=== PATIENT | female | born 1940 | race Caucasian/White ===

== ENCOUNTER → 2016-09-30 12:26 | Outpatient (CLI) | payer MEDICARE, OTHER ==
[2011-03-11 08:52] VITALS: BMI 22.8
== END | disposition home or self-care (01) ==
LOC: D.RAD 12:26
DX: R06.00 Dyspnea, unspecified (principal)

== ENCOUNTER → 2017-02-17 08:23 | Outpatient (CLI) | payer MEDICARE, OTHER ==
[2011-03-11 08:52] VITALS: BMI 22.8
[~2017-02-17 08:23] MED LIST: ADVAIR 250/501 DISK INH; BIOTIN5 MG PO; CENTRUM SILVER1 EAC3 PO; CO Q-1030 MG PO; CRANBERRY 400 M1 TA1 PO; DIOVAN HCT 80-11 TAB PO; GARLIQUE PO; LEVOXYL25 MCG PO; LOW DOSE ASPIRI81 M1 PO; MAG-OXIDE400 MG PO; OYSCO 500+D TAB1 TAB PO; PREMARIN0.625 MG PO; PROBIOTIC1 EAC1 PO; PROTONIX40 MG PO; SPIRIVA18 MCG INH; VITAMIN B-122500 MCG PO; VITAMIN C WIT1000 MG PO
[2017-02-17 09:29] LABS: ALBUMIN 3.6 g/dL (3.4-5.0); BILIRUBIN - DIRECT 0.1 mg/dL (0.00-0.30); BILIRUBIN - INDIRECT 0.21 mg/dL (0.00-1.00); BILIRUBIN - TOTAL 0.31 mg/dL (0.2-1.3); PROTEIN - SERUM 7.3 g/dL (6.4-8.2)
[2017-02-18 12:15] LABS: CEA 3.1 ng/mL (0.0-4.7)
[2017-05-25 07:04] VITALS: BMI 22.1
== END | disposition home or self-care (01) ==
LOC: D.US 08:23 → D.LAB 09:45 → D.US 10:00 → D.NM 02-18 08:30
PROVIDERS: Internal Medicine Gastroenterology
DX: R11.2 Nausea with vomiting, unspecified (principal); K31.7 Polyp of stomach and duodenum

== ENCOUNTER → 2017-03-23 08:34 | Outpatient (CLI) | payer MEDICARE, OTHER ==
[2011-03-11 08:52] VITALS: BMI 22.8
== END | disposition home or self-care (01) ==
LOC: D.RT 08:34
DX: J44.9 Chronic obstructive pulmonary disease, unspecified (principal)

== ENCOUNTER 2017-05-25 05:54 | Day surgery (SDC) | payer MEDICARE, OTHER ==
[2017-05-24 10:58] LABS: ANION GAP 12.9 mmol/L (8-16); CALCIUM 9.1 mg/dL (8.5-10.1); CARBON DIOXIDE 27.6 mmol/L (21.0-32.0); CREATININE - SERUM 1.1 mg/dL (0.6-1.3); HEMATOCRIT 41.9 % (36.0-48.0); HEMOGLOBIN 13.5 g/dL (12-16); MCH 28.5 pg (26.0-34.0); MCHC 32.2 g/dL (31.0-37.0); MCV 88.4 fL (80.0-100.0); MEAN PLATELET VOLUME 10.5 fL (7.4-10.4); POTASSIUM - SERUM 3.5 mmol/L (3.5-5.1); RBC 4.74 10x6/uL (4.00-5.40); RDW 13.7 % (11.5-14.5); WBC 7.2 10x3/uL (4.8-10.8)
[~2017-05-25] VITALS: Ht 166.4 cm; Wt 61.2 kg
--- NOTE | ~2017-05-25 | OP ---
PATIENT NAME: JEREMIAH ZAMORANO MEDICAL RECORD: [id number] :40 LOCATION:D.OPS ADMISSION DATE: SURGEON: GIUSEPPE GOLDBERG MD DATE OF OPERATION: 05/25/2017 PREOPERATIVE DIAGNOSIS: Duodenal adenoma. POSTOPERATIVE DIAGNOSES: A 4 cm carpeting duodenal adenoma. PROCEDURES: Esophagogastroduodenoscopy with polypectomy utilizing cold endoscopic biopsies and then ablation of the polyp with the argon plasma socket puller utilizing the esophageal setting in the forced mode. SURGEON: Giuseppe Goldberg MD OCCUPATIONAL THERAPY SUPERVISOR: None. BLOOD LOSS: 25 cc. ANESTHESIA: General. COMPLICATIONS: None. The risks, possible complications, and alternatives to the procedure were explained to the patient. She elects to proceed. OPERATIVE COURSE: The patient was conveyed to the operating room electively on 05/25/2017. General anesthesia was induced by the anesthesia staff. A bite block was inserted. A gastroscope was inserted into the mouth. It was advanced easily into the hypopharynx. The esophagus was easily intubated as were the stomach and duodenum. Upon withdrawal, retroflexed and angulus views were obtained. I then advanced again to the area between the second and third portions of the duodenum. Several cold endoscopic biopsies were performed. I then ablated all the polypoid tissue that I could see with the argon plasma socket puller utilizing the esophageal setting in the forced mode. The endoscope was then withdrawn under direct vision. Due to the size of the polyp and the complexity of its distribution and its histology, I want to plan that we could perform another EGD with argon plasma socket puller in 1 year as I believe it is a likelihood that there will be significant regrowth of this polyp by that time. TRANSINT:[id number] Voice Confirmation ID: [id number] DOCUMENT ID: [id number] GIUSEPPE GOLDBERG MD at 1454 CC: [id number] DICTATION DATE: 06/08/17 1048 GRAPHIC ART DESIGNER: 06/08/17 1325 [facility] 05/25/[address] [address]
[2017-05-25 07:04] VITALS: BP 136/72; Ht 166.4 cm; Wt 61.2 kg
== END 2017-05-25 11:25 | disposition home or self-care (01) ==
LOC: D.OPS 05:54 → D.PAN 08:00 → D.OPS 11:25
PROVIDERS: Anesthesiology
DX: K31.7 Polyp of stomach and duodenum (principal); I25.10 Atherosclerotic heart disease of native coronary artery without angina pectoris; I10 Essential (primary) hypertension; E03.9 Hypothyroidism, unspecified; J44.9 Chronic obstructive pulmonary disease, unspecified; K21.9 Gastro-esophageal reflux disease without esophagitis; Z95.5 Presence of coronary angioplasty implant and graft; Z01.812 Encounter for preprocedural laboratory examination

== ENCOUNTER → 2017-10-27 17:03 | Outpatient (CLI) | payer MEDICARE, OTHER ==
[2017-05-25 07:04] VITALS: BMI 22.1
== END | disposition home or self-care (01) ==
LOC: D.MAMMO 13:00
DX: Z12.31 Encounter for screening mammogram for malignant neoplasm of breast (principal)

== ENCOUNTER 2018-02-08 11:55 | Inpatient (IN) | payer MEDICARE, OTHER ==
[~2018-02-08] VITALS: Ht 167.6 cm; Wt 60.5 kg
--- NOTE | ~2018-02-08 | HP ---
PATIENT: JEREMIAH ZAMORANO MEDICAL RECORD: [id number] ACCOUNT: [id number] LOCATION:D.MS Adams2207 : 40 ADMISSION DATE: 02/08/18 PCP: MAYANK ALEGRE MD HISTORY AND PHYSICAL EXAMINATION REASON FOR ADMISSION: Shortness of breath and weakness. HOSPITAL COURSE: The patient is a 77-year-old female with severe O2 dependent COPD. She said about a week ago she developed a little low-grade fever, had increasing cough and shortness of breath. She did visit her sister in [place] where her home and very cool and she felt she got chilled air. With progressive worse over the weekend, went to the outpatient clinic on Tuesday and then took a chest x-ray did not show any problems and placed her on doxycycline 100 mg b.i.d. She was not given steroids. She became weaker over the weekend, saw an EARLY CHILDHOOD AIDE CLASSROOM in my office 3 days prior to admission. An O2 sat was 80%, she was placed on supplemental oxygen and improved. Chest x-ray showed COPD changes and antibiotics were continued. Today, she presented back just not feeling any better, very weak, hardly able to fix her food or take her medicines. In the office, her oxygen saturation was 86% on room air. She was tachypneic with audible wheezes. Chest x-ray again did not show infiltrate. She has now been admitted for exacerbation of COPD, possible underlying bronchitis. She was also hypoxic. PAST HISTORY: COPD followed by Dr. Gardner and was treated with doxycycline and prednisone 01/17/2018. History of FEV1 of 0.9 with 20% improvement with bronchodilators, sleep related hypoxemia, GERD, history of a duodenal adenomas removed by Dr. Desai in May of this year. History of coronary artery disease post stents, with angioplasty. History of cataracts. SURGICAL HISTORY: PTCA for CAD, duodenal adenoma removed by endoscopy May of 2017. History of bilateral breast fibroid tumors removed. History of hysterectomy. ALLERGIES: SULFA. FAMILY HISTORY: Cardiovascular disease in both parents and one sibling. SOCIAL HISTORY: She lives alone, on home O2. She has been for about 5 years. Not smoking currently, but had a significant history of smoking up until about 10 years ago. CURRENT MEDICATIONS: Spiriva 18 mcg 1 puff daily, valsartan HCT 80/12.5 one daily, aspirin 81 mg a day, calcium carbonate with vitamin D 500 mg a day, Advair Diskus 250/50 one puff b.i.d., probiotic 1 daily, magnesium oxide 400 mg p.o. daily, Protonix 40 mg p.o. daily, Premarin 0.625 mg a day, levothyroxine 0.025 mg p.o. daily every morning, ascorbic acid, vitamin C with marcial 1000 mg p.o. daily, Biotin 5 mg p.o. daily, vitamin B12 5000 mcg p.o. daily, Centrum Silver 1 daily, calcium cranberry fruit 400 mg p.o. b.i.d., and Coenzyme Q10 (ubidecarenone) 200 mg p.o. daily, garlic 1 daily. REVIEW OF SYSTEMS: GENERAL: Marked fatigue. Subjective fever for the last week. Poor appetite. HEENT: No recent visual change, sinus congestion or sore throat. RESPIRATORY: She has increased respiratory rate with audible wheezes noted. She is not retracting. She denies sputum production. HISTORY AND PHYSICAL [id number] JEREMIAH ZAMORANO CARDIAC: No chest pain, claudication, but does have GREENE. GASTROINTESTINAL: No nausea, vomiting, change in stools, blood per rectum. GENITOURINARY: No incontinence. GYNECOLOGY: No vaginal bleeding. PSYCHIATRIC: Denies depressed mood. INTEGUMENT: No rash or itching. PHYSICAL EXAMINATION: VITAL SIGNS: Temperature is 99, heart rate was 100 and regular, respirations were 22, blood pressure 110/90. GENERAL: Thin female, appears moderately ill. HEENT: Pupils are reactive. EOMI with lens implants noted. Sclerae nonicteric. Oropharynx is unremarkable except for dry mucous membranes. NECK: Supple. CHEST: She has shallow breathing with expiratory wheezes bilaterally. No rales. Increased AP diameter is noted. Heart is tachycardic without murmur. ABDOMEN: Soft, nontender. No organomegaly. Bowel sounds are active. EXTREMITIES: No CC&E. NEUROLOGICAL: Oriented to person, place, and time. Motor and sensory intact. Gait not tested due to shortness of breath. LABORATORY AND DIAGNOSTIC DATA: Chest x-ray shows hyperinflation on Tuesday. Blood gas pO2 of 69, pCO2 of 34, pH of 7.46 on 3 liters. Lactic acid is 0.73. H&H is 13.4 and 40, potassium 3.1. UA is pending. ASSESSMENT: 1. Exacerbation of chronic obstructive pulmonary disease with hypoxemia. 2. Intravascular volume depletion. 3. Hypokalemia. 4. Hypertension. 5. Hyperlipidemia. PLAN: The patient will be admitted for IV fluid rehydration, potassium replacement, pulmonary toilet with Herbie updraharman, Pulmicort, empiric IV antibiotics. TRANSINT:[id number] Voice Confirmation ID: [id number] DOCUMENT ID: [id number] MAYANK ALEGRE MD at 0748 CC: [id number] DICTATION DATE: 02/08/18 1320 GAS PLANT SPECIALIST: 02/08/18 1417 ADM IN [place] [id number] [place] [id number]
--- NOTE | ~2018-02-08 | MORECARE ---
CASE MANAGEMENT DISCHARGE SUMMARY PATIENT: JEREMIAH ZAMORANO UNIT: [id number] ADM DATE: 02/08/18 AGE: 77 : 40 SEX: F ROOM/BED: D.4405 AUTHOR: CHAPINCITO SAAVEDRA PHYSICIAN: REFERRING PHYSICIAN: MAYANK ALEGRE MD DATE OF SERVICE: 02/20/18 Discharge Plan Patient Name: JEREMIAH ZAMORANO [facility] [facility] 1940 Planned Disposition: Inpatient Rehab Anticipated Discharge Date: 02/20/18 Discharge Date: Expected LOS: 12 Initial Reviewer: [email or web address] Initial Review Date: 02/08/2018 Generated: 02/20/18 4:21 pm Comments DCP- Discharge Planning Updated by [id number]: Carlos Jimenez on 02/14/18 3:[address] Patient Name: JEREMIAH ZAMORANO Encounter No: [id number] : 1940 Primary Insurance: MEDICARE A & B Anticipated DC Date: Planned Disposition: Inpatient Rehab External Planned Provider: [facility] INPATIENT REHAB DCP follow-up note: CM RECEIVED REQUEST TO MEET WITH PT AND SON IN ROOM. CM MET WITH PT AND SON IN ROOM TO DISCUSS DISCHARGE PLANNING AND NEEDS. JEREMIAH ZAMORANO provided verbal consent to discuss current and ongoing needs with/in the presence of: SON, KALEB. PT WANTS CONSIDERED FOR INPATIENT REHAB AT [place] FOR DISCHARGE. SHE REPORTS BEING INDEPENEDENT AT HOME AND DRIVING PRIOR TO ILLNESS. PT'S SON CONCERNED THAT PT'S PHYSICAL CONDITION HAS DECLINED IN THE LAST DAY OR SO AND IS ALSO CONCERNED OF PT'S FOOD INTAKE. BEDSIDE NURSE AWARE ALSO. CM ASSURED PT'S SON THAT PT HAS GOOD TREATMENT TEAM AND THAT CM WOULD BE FOLLOWING TO ASSIST WITH REHAB REFERRAL WHEN DOCTORS BEGIN REPORTING PT IS MORE MEDICALLY STABLE AND CLOSER TO DISCHARGE. IMPORTANT MESSAGE FROM MEDICARE PROVIDED AND EXPLAINED. PT PLANS FOR REHAB AT [place]. CM WAITING MEDICAL STABILITY AND INPATIENT REHAB PRESCREENING ORDER. Carlos Jimenez CASE RADHA DCP- Discharge Planning Updated by [id number]: Samira Street on 02/10/18 2:[address] Patient Name: JEREMIAH ZAMORANO Admission Status: Urgent Accout number: [id number] Admission Date: 02-08-2018 : 05194 Admission Diagnosis:IMMUNE THROMBOCYTOPENIC PURPURA Attending: MAYANK ALEGRE Current LOS: 2 Anticipated DC Date: Planned Disposition: Inpatient Rehab Primary Insurance: MEDICARE A & B Discharge Planning Comments: CM met with patient and son to assess discharge planning needs. Patient lives alone independently at her home. She has bed side commode, home O2, Nebulizer, portable O2 with concentrator. She does not use any HH at this time. We talked about inpatient rehab and she was open to it when the times comes. There are no steps or stairs in her home. Her son, Kaleb will be her city driver home. CM will continue to follow and assist with DC planning. Lacquer Maker: Samira Street DCPIA - Discharge Planning Initial Assessment Updated by [email or web address]: Samira Street on 02/10/18 3:38 pm * Is the patient Alert and Oriented? Yes * How many steps to enter\exit or inside your home? * PCP * Pharmacy [facility] [address] * Preadmission Environment Home Alone * ADLs Independent * Equipment Bedside Commode Nebulizer Oxygen * List name and contact numbers for known caregivers / representatives who currently or will assist patient after discharge: KALEB ZAMORANO (SON) [phone] * Verbal permission to speak to the caregivers and representatives has been obtained from the patient. Yes * Community resources currently utilized None * Additional services required to return to the preadmission environment? Yes * Can the patient safely return to the preadmission environment? No * Has this patient been hospitalized within the prior 30 days at any hospital? No Coverage Notice Reviewer: [id number] Jimenez Notice Issued Date-Time: 02/14/2018 15:45 Notice Type: IM Discharge Notice Notice Delivered To: Family Member Relationship to Patient: Son Battery Assembler Name: KALEB ZAMORANO Delivery Method: HAND - Hand Delivered Esther Days: Prior Verbal Notification: Recipient Understood Notice: Yes Recipient Signature: Yes Med Rec Note Co-signed by Attending: Coverage Notice Comment: Reviewer: [id number] Tatyana Jimenez Notice Issued Date-Time: 02/20/2018 9:10 Notice Type: IM Discharge Notice Notice Delivered To: Patient Relationship to Patient: Battery Assembler Name: Delivery Method: HAND - Hand Delivered Esther Days: Prior Verbal Notification: Recipient Understood Notice: Yes Recipient Signature: Yes Med Rec Note Co-signed by Attending: Coverage Notice Comment: Last DP export: 02/16/18 6:09 Patient Name: JEREMIAH ZAMORANO Page [id number] at 1521 All edits/amendments must be made on the electronic document DICTATION DATE: 02/20/181519 KINESEOLOGIST: SARIKA 02/20/181519 RPT#: [id number] DC DATE: STATUS: ADM IN [facility] [address] [place] [address] END OF REPORT
--- NOTE | ~2018-02-08 | MORECARE ---
CASE MANAGEMENT DISCHARGE SUMMARY PATIENT: JEREMIAH ZAMORANO UNIT: [id number] ADM DATE: 02/08/18 AGE: 77 : 40 SEX: F ROOM/BED: D.[facility] AUTHOR: CHAPINCITO SAAVEDRA PHYSICIAN: REFERRING PHYSICIAN: MAYANK ALEGRE MD DATE OF SERVICE: 02/20/18 Discharge Plan Patient Name: JEREMIAH ZAMORANO Facility: [facility]:[place] : 1940 Planned Disposition: Inpatient Rehab Anticipated Discharge Date: 02/20/18 Discharge Date: Expected LOS: 12 Initial Reviewer: [email or web address] Initial Review Date: 02/08/2018 Generated: 02/20/18 4:30 pm Comments DCP- Discharge Planning Updated by [id number]: Carlos Jimenez on 02/20/18 2:[address] Patient Name: JEREMIAH ZAMORANO Encounter No: [id number] : 1940 Primary Insurance: MEDICARE A & B Anticipated DC Date: 02-20-2018 Planned Disposition: Inpatient Rehab External Planned Provider: [facility] INPATIENT REHAB DCP follow-up note: CM SPOKE TO [facility]AM OF INPATIENT REHAB, THEY HAVE MET WITH PT WHO IS IN AGREEMENT WITH REHAB AT [place] AND PLAN TO ACCEPT PT TODAY FOR REHAB. PT NOTIFIED, IN AGREEMENT WITH DISCHARGE TO INPATIENT REHAB TODAY. IMPORTANT MESSAGE FROM [employer] PROVIDED AND EXPLAINED. [facility] INPATIENT REHAB TO CONTACT MED 2 NURSE WITH ROOM NUMBER WHEN READY TO ACCEPT PT AND NURSE REPORT. Carlos Jimenez, CASE MANAGEMENT DCP- Discharge Planning Updated by [email or web address]: Carlos Jimenez on 02/14/18 3:[address] Patient Name: JEREMIAH ZAMORANO Encounter No: [id number] : 1940 Primary Insurance: MEDICARE A & B Anticipated DC Date: Planned Disposition: Inpatient Rehab External Planned Provider: [facility] INPATIENT REHAB DCP follow-up note: CM RECEIVED REQUEST TO MEET WITH PT AND SON IN ROOM. CM MET WITH PT AND SON IN ROOM TO DISCUSS DISCHARGE PLANNING AND NEEDS. JEREMIAH ZAMORANO provided verbal consent to discuss current and ongoing needs with/in the presence of: SON, KALEB. PT WANTS CONSIDERED FOR INPATIENT REHAB AT [place] FOR DISCHARGE. SHE REPORTS BEING INDEPENEDENT AT HOME AND DRIVING PRIOR TO ILLNESS. PT'S SON CONCERNED THAT PT'S PHYSICAL CONDITION HAS DECLINED IN THE LAST DAY OR SO AND IS ALSO CONCERNED OF PT'S FOOD INTAKE. BEDSIDE NURSE AWARE ALSO. CM ASSURED PT'S SON THAT PT HAS GOOD TREATMENT TEAM AND THAT CM WOULD BE FOLLOWING TO ASSIST WITH REHAB REFERRAL WHEN DOCTORS BEGIN REPORTING PT IS MORE MEDICALLY STABLE AND CLOSER TO DISCHARGE. IMPORTANT MESSAGE FROM MEDICARE PROVIDED AND EXPLAINED. PT PLANS FOR REHAB AT [place]. CM WAITING MEDICAL STABILITY AND INPATIENT REHAB PRESCREENING ORDER. Carlos Jimenez, CASE MANAGEMENT DCP- Discharge Planning Updated by [id number]: Samira Street on 02/10/18 2:[address] Patient Name: JEREMIAH ZAMORANO Admission Status: Urgent Accout number: [id number] Admission Date: 02-08-2018 : 1940 Admission Diagnosis:IMMUNE THROMBOCYTOPENIC PURPURA Attending: MAYANK ALEGRE Current LOS: 2 Anticipated DC Date: Planned Disposition: Inpatient Rehab Primary Insurance: MEDICARE A & B Discharge Planning Comments: CM met with patient and son to assess discharge planning needs. Patient lives alone independently at her home. She has bed side commode, home O2, Nebulizer, portable O2 with concentrator. She does not use any HH at this time. We talked about inpatient rehab and she was open to it when the times comes. There are no steps or stairs in her home. Her son, Kaleb will be her waste collection driver home. CM will continue to follow and assist with DC planning. Health Care Assistant: Samira Street DCPIA - Discharge Planning Initial Assessment Updated by [id number]: Samira Street on 02/10/18 3:38 pm * Is the patient Alert and Oriented? Yes * How many steps to enter\exit or inside your home? * PCP * Pharmacy [facility] [address] * Preadmission Environment Home Alone * ADLs Independent * Equipment Bedside Commode Nebulizer Oxygen * List name and contact numbers for known caregivers / representatives who currently or will assist patient after discharge: KALEB ZAMORANO (SON) [phone] * Verbal permission to speak to the caregivers and representatives has been obtained from the patient. Yes * Community resources currently utilized None * Additional services required to return to the preadmission environment? Yes * Can the patient safely return to the preadmission environment? No * Has this patient been hospitalized within the prior 30 days at any hospital? No Coverage Notice Reviewer: [id number] Jimenez Notice Issued Date-Time: 02/14/2018 15:45 Notice Type: IM Discharge Notice Notice Delivered To: Family Member Relationship to Patient: Son Streetcar Starter Name: KALEB ZAMORANO Delivery Method: HAND - Hand Delivered Esther Days: Prior Verbal Notification: Recipient Understood Notice: Yes Recipient Signature: Yes Med Rec Note Co-signed by Attending: Coverage Notice Comment: Reviewer: [id number] Jimenez Notice Issued Date-Time: 02/20/2018 9:10 Notice Type: IM Discharge Notice Notice Delivered To: Patient Relationship to Patient: Streetcar Starter Name: Delivery Method: HAND - Hand Delivered Esther Days: Prior Verbal Notification: Recipient Understood Notice: Yes Recipient Signature: Yes Med Rec Note Co-signed by Attending: Coverage Notice Comment: Last DP export: 02/20/18 2:21 Patient Name: JEREMIAH ZAMORANO Page [phone] at 1530 All edits/amendments must be made on the electronic document DICTATION DATE: 02/20/181528 MIXER OPERATOR HOT METAL: SARIKA 02/20/18 152 RPT#: [id number] DC DATE: STATUS: ADM IN [facility] [address] [place] [address] END OF REPORT
--- NOTE | ~2018-02-08 | CN ---
PATIENT NAME:JEREMIAH PULIDO MEDICAL RECORD: [id number] : 40 LOCATION:D.MS Adams220 ADMIT DATE: 02/08/18 ACCOUNT: [id number] CONSULTING PHYSICIAN: MAYITO ROPER MD REFERRING PHYSICIAN: NADER SEN MD DATE OF CONSULTATION: 02/09/2018 CONSULT REQUESTING PHYSICIAN: Dr. Nader Sen. REASON FOR CONSULTATION: Acute exacerbation of COPD, thrombocytopenic purpura. HISTORY OF PRESENT ILLNESS: Ms. Pulido is a 77-year-old female, very well known to me with chronic hypoxic respiratory failure and severe COPD. The patient was sick for the last few days. She was seen in the urgent care and was given doxycycline, methylprednisone, but she was not feeling well and seen Dr. Sen's office, her pulse ox was in 80s and the patient was admitted for acute exacerbation of COPD. Workup showed her platelet count is 8000. Denies any significant sputum production. She has low-grade fever, but there were no night sweats. REVIEW OF SYSTEMS: As in history of present illness. PAST MEDICAL HISTORY: 1. COPD of severe degree with FEV1 of nearly 20%. 2. Sleep related hypoxemia. 3. Gastroesophageal reflux disease. 4. History of duodenal adenomas removed by Dr. Desai. 5. Coronary artery disease. PAST SURGICAL HISTORY: 1. Status post angioplasty and stent placement. 2. Cataract surgery. ALLERGIES: She is allergic to SULFA. MEDICATIONS: [employer] is reviewed. PERSONAL AND SOCIAL HISTORY: The patient is . She lives alone. She has remote history of smoking. She is a nondrinker. FAMILY HISTORY: Noncontributory. PHYSICAL EXAMINATION: GENERAL: Now, the patient is lying comfortably. She is not in acute distress. VITAL SIGNS: The blood pressure 127/75, pulse is 114, respirations 20, temperature 97.7, SpO2 is 91% on nasal cannula. HEENT: Conjunctivae are pink. Sclerae are not icteric. NECK: Supple, no JVD. CHEST: Excursion minimal with prolonged expiratory wheezing. SKIN: She has an ulcer in the side of the lip. HEART: Rhythm regular, normal sound, no murmur. ABDOMEN: Soft, bowel sounds present. No hepatosplenomegaly. RECTAL: Deferred. EXTREMITIES: No cyanosis, no clubbing, no pedal edema. SKIN: Warm, normal turgor. CONSULT REPORT [id number] JEREMIAH PULIDO CENTRAL NERVOUS SYSTEM: The patient is awake and alert. There are no obvious cranial nerve abnormalities. The gait was not tested. CHEST RADIOGRAPH: Hyperinflation, there are no acute infiltrates. LABORATORY DATA: CBC: WBC 8.1, hemoglobin 11.9, hematocrit 34.6, the platelet count is 2000. Chemistry: Sodium is 134, potassium 3.3, BUN is 35, creatinine 1.7. ABG: The pH is 7.46, pCO2 is 33.8, the pO2 of 69, bicarbonate is 24. This was done on 3 liters oxygen. IMPRESSION: 1. Acute exacerbation of COPD. 2. Nsilb-ne-xalfbzx hypoxic respiratory failure. 3. Tracheobronchitis. 4. Thrombocytopenia. 5. Dehydration. 6. Hypokalemia. 7. Acute renal failure, most likely prerenal. RECOMMENDATION: 1. Continue with Levaquin IV. I will discontinue Zithromax, start her on Rocephin to cover for Gram-negative rods. 2. Methylprednisolone IV, and high dose per Dr. Mcelroy for thrombocytopenia. 3. IgG per Dr. Mcelroy. 4. Start on Brovana and budesonide nebulizer. 5. Albuterol ipratropium nebulizer. 6. Start on Flonase nasal spray. 7. Singulair 10 mg a day. 8. Supplemental oxygen to keep SpO2 above 90%. Discussed with the patient's son. Follow up labs and chest radiograph. Dr. Sen, thank you for involving me in the care of Ms. Pulido. TRANSINT:[id number] Voice Confirmation ID: [id number] DOCUMENT ID: [id number] MAYITO ROPER MD CC: NADER SEN [id number] DICTATION DATE: 02/09/18 1545 PHOTOGRAPH FINISHER: 02/09/18 1607 ADM IN [facility] [address] [place] [address]
--- NOTE | ~2018-02-08 | EC ---
PATIENT:JEREMIAH ZAMORANO DATE OF SERVICE: 02/08/18 SEX: F MEDICAL RECORD: [id number] DATE OF : [birth year] LOCATION:D.M2 D.211 AGE OF PATIENT: 77 ADMISSION DATE: 02/08/18 REFERRING PHYSICIAN: INTERPRETING PHYSICIAN: HERVE VOSS MD ECHOCARDIOGRAM REPORT ECHO CHARGES 4 ECHO COMPLETE Date: 02/16/18 CLINICAL DIAGNOSIS: ATRIAL FIB, HX CAD/STENTS ECHOCARDIOGRAPHIC MEASUREMENTS (adult normal given) AC root (d.<3.7cm) 3.6 cm LV Septum d (<1.2 cm> 1.4 cm Valve Excursion 1.1 cm LV Septum (systole) 1.5 cm Left Atria (s.<4.0cm> 3.4 cm LVPW d(<1.2cm) 1.3 cm RV (d.<2.3cm) 3.6 cm LVPW (sytole) 1.6 cm LV diastole(<5.6CM) 4.6 cm MV E-F(>70mm/sec) cm LV systole 3.1 cm LVOT Diameter 1.6 cm MV exc.(>10mm) cm Est.ejection fraction (50-75%) % DOPPLER: LVIT cm/sec A 36.0 cm/sec E 98.0 cm/sec LA cm/sec RVSP 27 mmHg LVOT 64 cm/sec AOP1/2T m/s Asc. Ao 99 cm/sec RVOT 59 cm/sec RA cm/sec PA 95 cm/sec AV Gradient Peak 3.92 mmHg AV Mean 2.33 mmHg AV Area 1.2 cm MV Gradient Peak 5.05 mmHg MV Mean 1.62 mmHg MV Area cm COMMENTS: Fisher Weir: Javier MIRANDA Planning Supervisor: 3 Dr. Faustin TAPE# PACS Pericardial Effusion N DATE OF SERVICE: 02/16/2018 PROCEDURE: Echocardiogram. FINDINGS: 1. Left ventricular chamber size is within normal limits. Left ventricular systolic function is normal. Overall ejection fraction estimated 50% to 55%. 2. Left atrium is within normal limits at 3.4 cm. Right atrium and right ventricle chamber sizes are mildly dilated. 3. Valvular structures have normal structure and motion. ECHOCARDIOGRAM REPORT [id number] JEREMIAH ZAMORANO 4. Doppler interrogation reveals mild mitral regurgitation, mild tricuspid regurgitation, no other valvular insufficiency or stenosis. Pulmonary systolic pressure is estimated at 27 mmHg. 5. No evidence of pericardial effusion or left ventricular thrombus. TRANSINT:[id number] Voice Confirmation ID: [id number] DOCUMENT ID: [id number] HERVE VOSS MD at 0924 CC: [id number] DICTATION DATE: 02/16/18 1208 EDGE WORKER: 02/16/18 1216 DIS IN 02/20/18 [facility] [address] [place] [id number]
--- NOTE | ~2018-02-08 | HEMODYNAMI ---
PATIENT:JEREMIAH ZAMORANO MEDICAL RECORD: [id number] : 40 [facility] [id number] ADMISSION DATE: 02/08/18 Generatedon:02/13/201813:35 Patient name: JEREMIAH ZAMORANO Patient #: [id number] SSN: D OB: 1940 Date of study: 02/13/2018 Page: Of Hemodynamic Procedure Report Patient Data Patient Demographics Procedure consent was obtained First Name: JEREMIAH Gender: Female Last Name: LONA : 1940 [facility] Initial: KAYCE Age: 77 year(s) Patient #: [id number] Race: Unknown Additional ID: [id number] Contact details Address: [address] [place] [address] State: [place] City: [place] Zip code: [address] Past Medical History Allergies Allergen Reaction Date Comments Reported Sulfa drugs 02/13/2018 Admission Admission Data Admission Date: 02/08/2018 Admission Time: 11:55 Room #: D2115 Procedure Procedure Types Cath Procedure Peripheral Cath Diagnostic Procedure Miscellaneous Thoracentesis Procedure Description Procedure Date Procedure Date: 02/13/2018 Procedure Start Time: 13:18 Procedure Staff Name Function Umair Barker MD Performing Physician Alicja Upton RT Engagement Manager Jennifer Pizano RN Nurse Lia Williamson RN Nurse Procedure Data Cath Procedure Fluoroscopy Diagnostic fluoroscopy Total fluoroscopy Time: 0.4 time: 0.4 min min Diagnostic fluoroscopy Total fluoroscopy dose: 82 dose: 82 mGy mGy Procedure Medications Medication Administration Route Dosage Oxygen etCO2 Nasal cannula 4 l/min Lidocaine 1% added to field 20 Versed I.V. 2 mg Fentanyl I.V. 50 mcg Fentanyl I.V. 50 mcg Heparin Flush Bag added to field 1 bags (1000units/500ml NS) Hemodynamics Rest Heart Rate: 105 (bpm) Snapshots Pre Cath Intra NCS Post Cath Vital Signs Time Heart Resp SPO2 etCO2 NIBP (mmHg) Rhythm Pain Sedation Rate (ipm) (%) (mmHg) Status Level (bpm) 13:02:34 115 26 94 17.2 125/79(104) ST 0 (11) 9(A) , No pain 13:06:31 118 24 96 20.2 120/75(99) ST 0 (11) 9(A) , No pain 13:10:29 117 26 98 13.5 124/82(98) ST 0 (11) 9(A) , No pain 13:14:22 117 25 99 11.9 127/82(95) ST 0 (11) 9(A) , No pain 13:18:16 114 23 98 11.2 119/78(97) ST 0 (11) 9(A) , No pain 13:22:11 111 19 95 19.5 116/72(92) ST 0 (11) 9(A) , No pain 13:26:11 107 15 94 12.7 104/60(76) ST 0 (11) 9(A) , No pain 13:30:07 107 16 94 14.9 110/63(81) ST 0 (11) 9(A) , No pain 13:34:02 108 17 94 21.7 107/61(72) ST 0 (11) 9(A) , No pain Medications Time Medication Route Dose Verified Delivered Reason Notes Effe ctiveness by by 13:12:17 Oxygen etCO2 4 Umair Rodriguez Per Nasal l/min Mj Pizano RN protocol cannula 13:16:50 Lidocaine 1% added 20ml Umair Block used for to vial Barker Barker procedure field MD ARROYO 13:17:23 Versed I.V. 2 mg Umair Fitzgerald for Dozi ng Mj Williamson RN sedation intermittently MD @ 13:21:03 13:17:33 Fentanyl I.V. 50 Umair Fitzgerald for Dozi ng mcg Mj Williamson RN sedation intermittently MD @ 13:20:59 13:21:14 Fentanyl I.V. 50 Umair Fitzgerald for Most ly mcg Mj Williamson RN sedation sleeping @ 13:29:49 13:30:13 Heparin Flush added 1 Umair Block used for Bag to bags Barker Barker procedure (1000units/500ml field MD ARROYO NS) Procedure Log Time Note 12:40:34 German Upton RT (R) (CV) sent for patient. Start room use. 12:40:46 Time tracking: Regular hours (M-F 7:00 - 5:00) 12:40:51 Plan of Care:Hemodynamics will remain stable., Cardiac rhythm will remain stable., Comfort level will be maintained., Respiratory function will remain adequate., Patient/ family verbilizes understanding of procedure., Procedure tolerated without complication., Recovers from procedure without complications.. 12:40:59 Patient received from YETI Group II to IR Alert and oriented. Tansferred to table in Prone position. 12:41:03 Correct patient and procedure confirmed by team. 12:41:05 Signed procedure consent form obtained from patient. 12:41:07 ECG and BP/O2 sat monitors applied to patient. 12:41:08 Full Disclosure recording started 12:41:10 - 12:41:13 H&P Date Dictated: 02/13/2018 Within 30 days and on chart.. 12:41:14 Pre-procedure instructions explained to patient. 12:41:14 Pre-op teaching completed and patient verbalized understanding. 12:41:16 Family in waiting room. 12:41:17 Patient NPO since Midnight. 12:41:33 Patient allergic to Sulfa drugs 12:41:46 Is the patient allergic to Iodine/contrast media? No. 12:41:47 Is patient on blood thinner?No 12:43:46 Patient diabetic? No. 12:43:48 - 12:43:49 ----Pre-sedation anethsthesia assessment.---- 12:44:36 Previous problem with sedation/anesthesia? No ? 12:44:40 Snore? Yes 12:44:43 Sleep apnea? No 12:44:45 Deviated septum? No 12:44:46 Opens mouth fully? Yes 12:44:47 Sticks out tongue? Yes 12:44:50 Airway obstruction? No ? 12:44:53 Dentures? No ? 12:45:04 IV patent on arrival in right wrist with 0.9% NaCl at [facility]. 12:45:11 Lumbar sacral area was prepped with chlora-prep and draped in sterile fashion 12:53:56 Use device set IR Diagnostic 12:53:57 Sterile Angiographic Pack opened to sterile field. 12:53:58 Bag Decanter ([id number]) opened to sterile field. 12:53:58 Tegaderm 4 x 4 ([id number]) opened to sterile field. 13:01:54 Vital chart was started 13:10:14 Physician arrived 13:10:15 --------ALL STOP TIME OUT------ 13:10:16 Final Timeout: patient, procedure, and site verified with staff and physician. All members of the team are in agreement. 13:10:20 Lumba sacral r site verified by team. 13:10:37 Sedation plan: IV Moderate Sedation Medication:Versed, Fentanyl 13:12:01 Baseline sample Acquired. 13:12:17 Oxygen 4 l/min etCO2 Nasal cannula was administered by Jennifer Pizano RN ; Per protocol; 13:16:50 Lidocaine 1% 20ml vial added to field was administered by Umair Barker MD; used for procedure; 13:17:23 Versed 2 mg I.V. was administered by Lia Williamson RN; for sedation; 13:17:33 Fentanyl 50 mcg I.V. was administered by Lia Williamson RN; for sedation; 13:18:05 Procedure started. 13:18:09 Local anesthetic to Lumbar area with Lidocaine 1% by Umair Barker MD.INITIAL ACCESS ONLY 13:20:59 Effectiveness of Fentanyl delivered @ 13:17:33 is: Dozing intermittentl y 13:21:03 Effectiveness of Versed delivered @ 13:17:23 is: Dozing intermittently 13:21:14 Fentanyl 50 mcg I.V. was administered by Lia Williamson RN; for sedation; 13:21:52 Baseline sample Acquired. 13:28:57 Procedure ended.(Physican Out) 13:29:45 Fluoroscopy time 00.40 minutes. 13:29:49 Effectiveness of Fentanyl delivered @ 13:21:14 is: Mostly sleeping 13:29:59 Fluoroscopy dose: 82 mGy 13:29:59 Flurop Dose total: 82 13:30:01 Sharps counted by scrub and verified by R.N. 13:30:03 Insertion/operative site no bleeding no hematoma. 13:30:08 Post-op/insertion site Left Lumbar sacral area dressed using a 4 x 4 an d Tegaderm. 13:30:13 Heparin Flush Bag (1000units/500ml NS) 1 bags added to field was administered by Umair Barker MD; used for procedure; 13:30:34 Post procedure instruction explained to patient.Patient verbalizes understanding. 13:30:35 Procedure and supply charges have been captured, reviewed, submitted an d are correct. 13:35:14 Report given to Med II. 13:35:20 Patient transfered to [facility] II with Bed. 13:35:41 Vital chart was stopped Device Usage Item Name Manufacture Quantity Catalog Hospital Part Current Minimal Lot# / Number Charge Number Stock Stock Serial# Code Sterile Cardinal 1 [id number] Angiographic Health Pack Bag Decanter Microtek 1 [id number] () [employer] Tegaderm 4 x 3M 1 [id number] 4 ([id number]) Signature Audit [place] Stage Time Signature Unsigned Intra-Procedure 02/13/2018 German 1:35:39 PM Won RT (R) (CV) [id number] [place] [address]
--- NOTE | ~2018-02-08 | CN ---
PATIENT NAME:JEREMIAH ZAMORANO MEDICAL RECORD: [id number] : 40 LOCATION:D.M2 D.2115 ADMIT DATE: 02/08/18 ACCOUNT: [id number] CONSULTING PHYSICIAN: ANNA BURK MD REFERRING PHYSICIAN: MAYANK SEN MD DATE OF CONSULTATION: 02/11/2018 HISTORY OF PRESENT ILLNESS: A 77-year-old female with a history of coronary artery disease - status post stenting, severe obstructive pulmonary disease - FEV1 less than 1, admitted from Dr. Sen's office for obstructive pulmonary disease exacerbation. She was found to have thrombocytopenia, currently evaluated by Dr. Mcelroy, has received Solu-Medrol as well for low platelets, had AFib with RVR. No history of arrhythmia in the past. Currently on diltiazem drip, has reverted to sinus and was still somewhat tachycardic, we are asked to see her concerning her cardiovascular status. PAST MEDICAL HISTORY: Includes, 1. History of coronary artery disease, status post intervention. 2. Obstructive pulmonary disease. 3. Hypertension. 4. Hyperlipidemia. MEDICATIONS: At home typically include Spiriva 18 mcg daily, valsartan 80/12.5 every day, aspirin 81 every day, Advair 250/50 b.i.d., Protonix 40 every day, Synthroid 0.025 mg every day. ALLERGIES: SULFA. SOCIAL HISTORY: Lives alone, has some difficulty with ADLs as of late. Quit smoking approximately 10 years ago, . REVIEW OF SYSTEMS: The patient reports easy bruising but reports no swollen glands. The patient reports no fever, no night sweats, no significant weight gain, no significant weight loss. No significant exercise tolerance. The patient reports no dry eyes, no irritation, no vision change. Patient reports no difficulty hearing and no ear pain. Patient reports no frequent nose bleeds or nose and sinus problems. Patient reports on arm pain on exertion. No shortness of breath while lying down. No history of heart murmur. Patient reports no cough, no wheezing or coughing up blood. Patient reports no abdominal pain, no vomiting. Normal appetite. No diarrhea and not vomiting blood. No nausea and no constipation. Patient reports no incontinence. No difficulty urinating. No hematuria. No increased frequency. Patient reports no muscle aches. No weakness, no arthralgias, no back pain. No swelling of the extremities. Patient reports no abnormal mole, no jaundice, no rashes. Reports no loss of consciousness. No weakness and no numbness. No seizures, dizziness, or headaches. The patient reports no depression, no sleep disturbance, feeling safe in a relationship and no alcohol abuse. Patient reports on fatigue. Reports no runny nose or sinus pressure. No itching, no hives, and no frequent sneezing. PHYSICAL EXAMINATION: GENERAL: Chronically ill appearing female in no acute distress. VITAL SIGNS: Blood pressure 118/71, pulse 123 but regular. HEENT: Normocephalic, atraumatic. NECK: No bruits noted. CONSULT REPORT [id number] JEREMIAH ZAMORANO HEART: Tones are distant, no obvious gallop. Tachycardic but regular. LUNGS: Decreased air excursion with inspiration and expiration, a few expiratory wheezes. ABDOMEN: Soft, nontender. EXTREMITIES: Pulses 2+ with no edema. NEUROLOGIC: Grossly intact. IMPRESSION: Atrial fibrillation, multifactorial, underlying chronic obstructive pulmonary disease exacerbation. ___ aggravated by steroids. Reverted to sinus on IV diltiazem drip. No current anticoagulation given thrombocytopenia. Would strive for rate control and rhythm. Hopefully, this will be easier as her respiratory status improves. TRANSINT:[id number] Voice Confirmation ID: [id number] DOCUMENT ID: [id number] ANNA BURK MD at 1023 CC: [id number] DICTATION DATE: 02/11/18 1003 BOOT TURNER: 02/11/18 1108 ADM IN [id number] [place] [address]
[2018-02-08 13:29] LABS: ANION GAP 14.9 mmol/L (8-16); CALCIUM 8.6 mg/dL (8.5-10.1); CARBON DIOXIDE 25.4 mmol/L (21.0-32.0); CREATININE - SERUM 1.6 mg/dL (0.6-1.3); POTASSIUM - SERUM 3.3 mmol/L (3.5-5.1)
[2018-02-08 15:07] VITALS: BP 118/58
[2018-02-08 15:09] LABS: BASOPHILS 0.1 % (0-2); EOSINOPHILS 1.5 % (0-7); HEMATOCRIT 38.5 % (36.0-48.0); HEMOGLOBIN 13.4 g/dL (12-16); IMMATURE GRANULOCYTES 0.5 % (0-5); LYMPHOCYTES 6.8 % (15-50); MCH 28.8 pg (26.0-34.0); MCHC 34.8 g/dL (31.0-37.0); MCV 82.8 fL (80.0-100.0); MONOCYTES 4.9 % (2-11); NEUTROPHILS 86.2 % (40-80); RBC 4.65 10x6/uL (4.00-5.40); RDW 14.5 % (11.5-14.5); WBC 8.1 10x3/uL (4.8-10.8)
[2018-02-08 15:14] LABS: PLATELET COUNT 8 10x3/uL (130-400)
[2018-02-08 15:47] LABS: PLATELET ESTIMATE DECREASED
[2018-02-08 17:31] LABS: APTT 28.2 SECONDS (22.8-39.4)
[2018-02-08 17:32] LABS: INR 0.98 (0.85-1.17); PROTIME 12.6 SECONDS (11.6-15.0)
[2018-02-09] VITALS (10 sets, daily range): BP systolic 109–144; BP diastolic 64–77; BMI 21.6
[2018-02-09 06:50] LABS: ANION GAP 14.5 mmol/L (8-16); CARBON DIOXIDE 24.8 mmol/L (21.0-32.0); CREATININE - SERUM 1.7 mg/dL (0.6-1.3); POTASSIUM - SERUM 3.3 mmol/L (3.5-5.1)
[2018-02-09 07:45] LABS: BASOPHILS 0.1 % (0-2); EOSINOPHILS 1.2 % (0-7); HEMATOCRIT 34.6 % (36.0-48.0); HEMOGLOBIN 11.9 g/dL (12-16); IMMATURE GRANULOCYTES 0.5 % (0-5); LYMPHOCYTES 5.6 % (15-50); MCH 28.7 pg (26.0-34.0); MCHC 34.4 g/dL (31.0-37.0); MCV 83.6 fL (80.0-100.0); MONOCYTES 4.5 % (2-11); NEUTROPHILS 88.1 % (40-80); RBC 4.14 10x6/uL (4.00-5.40); RDW 14.7 % (11.5-14.5); WBC 8.1 10x3/uL (4.8-10.8)
[2018-02-09 08:14] LABS: PLATELET COUNT 2 10x3/uL (130-400)
[2018-02-10] VITALS (7 sets, daily range): BP systolic 90–134; BP diastolic 58–78
[2018-02-10 05:25] LABS: BASOPHILS 0.1 % (0-2); EOSINOPHILS 0 % (0-7); HEMATOCRIT 32.3 % (36.0-48.0); HEMOGLOBIN 11.1 g/dL (12-16); IMMATURE GRANULOCYTES 0.7 % (0-5); LYMPHOCYTES 5.2 % (15-50); MCH 28.2 pg (26.0-34.0); MCHC 34.4 g/dL (31.0-37.0); MCV 82.2 fL (80.0-100.0); MONOCYTES 2.2 % (2-11); NEUTROPHILS 91.8 % (40-80); RBC 3.93 10x6/uL (4.00-5.40); RDW 14.7 % (11.5-14.5); WBC 7.2 10x3/uL (4.8-10.8)
[2018-02-10 05:27] LABS: PLATELET COUNT 30 10x3/uL (130-400)
[2018-02-10 05:53] LABS: ANION GAP 13.3 mmol/L (8-16); CALCIUM 7.8 mg/dL (8.5-10.1); CARBON DIOXIDE 19.5 mmol/L (21.0-32.0); CREATININE - SERUM 1.6 mg/dL (0.6-1.3); POTASSIUM - SERUM 3.8 mmol/L (3.5-5.1)
[2018-02-10 13:35] LABS: CARBON DIOXIDE 16.3 mmol/L (21.0-32.0); CREATININE - SERUM 1.7 mg/dL (0.6-1.3); POTASSIUM - SERUM 4.3 mmol/L (3.5-5.1)
[2018-02-10 17:13] LABS: EHRLICHIA CHAFF IGG Negative (Neg:<1:64); EHRLICHIA CHAFF IGM Negative (Neg:<1:20); HGE IGG TITER Negative (Neg:<1:64); HGE IGM TITER Negative (Neg:<1:20)
[2018-02-11] VITALS: BP 100/68
[2018-02-11 03:10] LABS: RMSF IGM 0.23 index (0.00-0.89)
[2018-02-11 05:21] LABS: BASOPHILS 0.1 % (0-2); EOSINOPHILS 0 % (0-7); HEMATOCRIT 33.2 % (36.0-48.0); HEMOGLOBIN 11.3 g/dL (12-16); IMMATURE GRANULOCYTES 0.4 % (0-5); LYMPHOCYTES 7.1 % (15-50); MCH 28.3 pg (26.0-34.0); MONOCYTES 5.1 % (2-11); NEUTROPHILS 87.3 % (40-80); RDW 15.2 % (11.5-14.5)
[2018-02-11 05:27] LABS: WBC 9.6 10x3/uL (4.8-10.8)
[2018-02-11 05:28] LABS: PLATELET COUNT 64 10x3/uL (130-400)
[2018-02-11 05:44] LABS: ANION GAP 12.9 mmol/L (8-16); CALCIUM 8.1 mg/dL (8.5-10.1); CARBON DIOXIDE 19.6 mmol/L (21.0-32.0); CREATININE - SERUM 1.4 mg/dL (0.6-1.3); POTASSIUM - SERUM 4.5 mmol/L (3.5-5.1)
[2018-02-11 05:53] VITALS: BP 114/74
[2018-02-11 07:59] VITALS: BP 118/71
[2018-02-11 10:46] VITALS: BP 127/69
[2018-02-11 15:47] VITALS: BP 114/65
[2018-02-11 20:00] VITALS: BP 114/69
[2018-02-12] VITALS: BP 119/79
[2018-02-12 04:00] VITALS: BP 113/77
[2018-02-12 08:04] VITALS: BP 114/59
[2018-02-12 11:01] VITALS: BP 120/72
[2018-02-12 14:17] LABS: BASOPHILS 0.1 % (0-2); EOSINOPHILS 0 % (0-7); HEMATOCRIT 31.4 % (36.0-48.0); HEMOGLOBIN 10.4 g/dL (12-16); IMMATURE GRANULOCYTES 0.6 % (0-5); LYMPHOCYTES 5.7 % (15-50); MCHC 33.1 g/dL (31.0-37.0); MCV 84.6 fL (80.0-100.0); MONOCYTES 6.1 % (2-11); NEUTROPHILS 87.5 % (40-80); RBC 3.71 10x6/uL (4.00-5.40); RDW 15.6 % (11.5-14.5); WBC 7.2 10x3/uL (4.8-10.8)
[2018-02-12 14:21] LABS: PLATELET COUNT 115 10x3/uL (130-400)
[2018-02-12 14:53] LABS: ALBUMIN 1.8 g/dL (3.4-5.0); ANION GAP 17.7 mmol/L (8-16); BILIRUBIN - TOTAL 0.41 mg/dL (0.2-1.3); CALCIUM 7.8 mg/dL (8.5-10.1); CARBON DIOXIDE 19.2 mmol/L (21.0-32.0); CREATININE - SERUM 1.4 mg/dL (0.6-1.3); POTASSIUM - SERUM 4.9 mmol/L (3.5-5.1); PROTEIN - SERUM 5.8 g/dL (6.4-8.2)
[2018-02-12 20:00] VITALS: BP 109/70
[2018-02-13 00:11] VITALS: BP 117/74
[2018-02-13 04:00] VITALS: BP 109/64
[2018-02-13 04:50] LABS: BASOPHILS 0 % (0-2); EOSINOPHILS 0 % (0-7); HEMATOCRIT 30.1 % (36.0-48.0); HEMOGLOBIN 10.1 g/dL (12-16); IMMATURE GRANULOCYTES 0.4 % (0-5); LYMPHOCYTES 4.3 % (15-50); MCH 28.1 pg (26.0-34.0); MCHC 33.6 g/dL (31.0-37.0); MCV 83.6 fL (80.0-100.0); MONOCYTES 6.8 % (2-11); NEUTROPHILS 88.5 % (40-80); PLATELET COUNT 105 10x3/uL (130-400); RDW 15.5 % (11.5-14.5); WBC 4.9 10x3/uL (4.8-10.8)
[2018-02-13 05:06] LABS: ALBUMIN 1.7 g/dL (3.4-5.0); ANION GAP 10.4 mmol/L (8-16); BILIRUBIN - TOTAL 0.48 mg/dL (0.2-1.3); CALCIUM 7.8 mg/dL (8.5-10.1); CARBON DIOXIDE 21.3 mmol/L (21.0-32.0); CREATININE - SERUM 1.2 mg/dL (0.6-1.3); POTASSIUM - SERUM 4.7 mmol/L (3.5-5.1); PROTEIN - SERUM 6.5 g/dL (6.4-8.2)
[2018-02-13 08:23] VITALS: BP 116/69
[2018-02-13 11:21] VITALS: BP 97/60
[2018-02-13 11:23] LABS: APTT 21.2 SECONDS (22.8-39.4); INR 1.07 (0.85-1.17); PROTIME 13.5 SECONDS (11.6-15.0)
[2018-02-13 20:00] VITALS: BP 103/58
[2018-02-14] VITALS: BP 130/58
[2018-02-14 04:00] VITALS: BP 105/68
[2018-02-14 05:45] LABS: BASOPHILS 0 % (0-2); EOSINOPHILS 0 % (0-7); HEMATOCRIT 29.3 % (36.0-48.0); HEMOGLOBIN 9.8 g/dL (12-16); IMMATURE GRANULOCYTES 0.6 % (0-5); LYMPHOCYTES 6.5 % (15-50); MCH 28.2 pg (26.0-34.0); MCHC 33.4 g/dL (31.0-37.0); MCV 84.2 fL (80.0-100.0); NEUTROPHILS 86.9 % (40-80); PLATELET COUNT 150 10x3/uL (130-400); RBC 3.48 10x6/uL (4.00-5.40); RDW 15.6 % (11.5-14.5); WBC 6.3 10x3/uL (4.8-10.8)
[2018-02-14 06:18] LABS: ANION GAP 15.1 mmol/L (8-16); CARBON DIOXIDE 21.1 mmol/L (21.0-32.0); CREATININE - SERUM 1.3 mg/dL (0.6-1.3); POTASSIUM - SERUM 5.2 mmol/L (3.5-5.1)
[2018-02-14 08:00] VITALS: BP 112/68
[2018-02-14 11:40] VITALS: BP 112/72
[2018-02-14 16:11] VITALS: BP 122/70
[2018-02-14 20:21] VITALS: BP 139/77
[2018-02-14 23:20] LABS: APPEARANCE HAZY (CLEAR); BILIRUBIN NEGATIVE (NEGATIVE); COLOR YELLOW (YELLOW); GLUCOSE 1000 mg/dL (NEGATIVE); KETONE NEGATIVE (NEGATIVE); NITRITE NEGATIVE (NEGATIVE); PROTEIN TRACE mg/dL (NEGATIVE); SPECIFIC GRAVITY 1.015 (1.005-1.020); UROBILINOGEN NORMAL (NORMAL)
[2018-02-14 23:22] LABS: BACTERIA MODERATE /hpf (NONE SEEN); EPITHELIAL CELLS 0-5 /hpf (0-5); RED CELLS - URINE 0-5 /hpf (0-5); WHITE CELLS - URINE 0-5 /hpf (0-5); YEAST <1+ /hpf (NONE SEEN)
[2018-02-15] VITALS: BP 112/70
[2018-02-15 04:00] VITALS: BP 148/84
[2018-02-15 06:01] LABS: BASOPHILS 0 % (0-2); EOSINOPHILS 0 % (0-7); HEMATOCRIT 28.7 % (36.0-48.0); HEMOGLOBIN 9.8 g/dL (12-16); IMMATURE GRANULOCYTES 0.6 % (0-5); LYMPHOCYTES 9.3 % (15-50); MCH 28.7 pg (26.0-34.0); MCHC 34.1 g/dL (31.0-37.0); MCV 84.2 fL (80.0-100.0); MEAN PLATELET VOLUME 12.7 fL (7.4-10.4); MONOCYTES 5.6 % (2-11); NEUTROPHILS 84.5 % (40-80); RBC 3.41 10x6/uL (4.00-5.40); RDW 15.5 % (11.5-14.5); WBC 6.8 10x3/uL (4.8-10.8)
[2018-02-15 06:24] LABS: PLATELET COUNT 183 10x3/uL (130-400)
[2018-02-15 09:30] VITALS: BP 134/83
[2018-02-15 20:00] VITALS: BP 136/89
[2018-02-16 04:00] VITALS: BP 146/71
[2018-02-16 05:58] LABS: BASOPHILS 0 % (0-2); EOSINOPHILS 0 % (0-7); HEMATOCRIT 30.4 % (36.0-48.0); HEMOGLOBIN 10.2 g/dL (12-16); IMMATURE GRANULOCYTES 0.8 % (0-5); LYMPHOCYTES 6.1 % (15-50); MCH 28.5 pg (26.0-34.0); MCHC 33.6 g/dL (31.0-37.0); MCV 84.9 fL (80.0-100.0); MEAN PLATELET VOLUME 12.9 fL (7.4-10.4); MONOCYTES 11.2 % (2-11); NEUTROPHILS 81.9 % (40-80); PLATELET COUNT 205 10x3/uL (130-400); RBC 3.58 10x6/uL (4.00-5.40); RDW 15.4 % (11.5-14.5); WBC 8.4 10x3/uL (4.8-10.8)
[2018-02-16 06:38] LABS: ANION GAP 11.6 mmol/L (8-16); CALCIUM 7.2 mg/dL (8.5-10.1); CARBON DIOXIDE 25.6 mmol/L (21.0-32.0); MAGNESIUM - SERUM 1.4 mg/dL (1.8-2.4); PHOSPHOROUS 3.2 mg/dL (2.5-4.9)
[2018-02-16 06:41] LABS: POTASSIUM - SERUM 5.2 mmol/L (3.5-5.1)
[2018-02-16 08:48] VITALS: BP 130/81
[2018-02-16 12:21] VITALS: BP 104/59
[2018-02-16 16:56] VITALS: BP 111/62
[2018-02-16 23:12] VITALS: BP 112/72
[2018-02-17 02:38] VITALS: BP 131/60
[2018-02-17 05:07] LABS: BASOPHILS 0.1 % (0-2); EOSINOPHILS 0 % (0-7); HEMATOCRIT 31.2 % (36.0-48.0); HEMOGLOBIN 10.5 g/dL (12-16); IMMATURE GRANULOCYTES 1.2 % (0-5); LYMPHOCYTES 8.9 % (15-50); MCH 28.6 pg (26.0-34.0); MCHC 33.7 g/dL (31.0-37.0); MEAN PLATELET VOLUME 11.8 fL (7.4-10.4); MONOCYTES 9.9 % (2-11); NEUTROPHILS 79.9 % (40-80); RBC 3.67 10x6/uL (4.00-5.40); RDW 15.3 % (11.5-14.5); WBC 10.5 10x3/uL (4.8-10.8)
[2018-02-17 05:09] LABS: PLATELET COUNT 273 10x3/uL (130-400)
[2018-02-17 05:21] LABS: ANION GAP 10.1 mmol/L (8-16); CALCIUM 7.3 mg/dL (8.5-10.1); CARBON DIOXIDE 27.4 mmol/L (21.0-32.0); CREATININE - SERUM 1.1 mg/dL (0.6-1.3)
[2018-02-17 05:23] LABS: POTASSIUM - SERUM 3.5 mmol/L (3.5-5.1)
[2018-02-17 06:07] VITALS: BP 112/59
[2018-02-17 08:00] VITALS: BP 128/60
[2018-02-17 20:00] VITALS: BP 121/90
[2018-02-18] VITALS: BP 113/62
[2018-02-18 04:00] VITALS: BP 120/54
[2018-02-18 07:59] VITALS: Ht 167.6 cm; Wt 60.5 kg
[2018-02-18 08:39] VITALS: BP 111/61
[2018-02-18 10:42] VITALS: BP 117/70
[2018-02-18 14:56] VITALS: BP 105/55
[2018-02-18 20:00] VITALS: BP 107/59
[2018-02-19] VITALS: BP 101/56
[2018-02-19 04:00] VITALS: BP 131/67
[2018-02-19 07:14] LABS: ANION GAP 13.7 mmol/L (8-16); CALCIUM 7.2 mg/dL (8.5-10.1); CARBON DIOXIDE 24.9 mmol/L (21.0-32.0); POTASSIUM - SERUM 3.6 mmol/L (3.5-5.1)
[2018-02-19 07:56] LABS: BASOPHILS 0.1 % (0-2); EOSINOPHILS 0 % (0-7); HEMATOCRIT 36.3 % (36.0-48.0); HEMOGLOBIN 12.4 g/dL (12-16); IMMATURE GRANULOCYTES 1.1 % (0-5); LYMPHOCYTES 7.5 % (15-50); MCH 29.1 pg (26.0-34.0); MCHC 34.2 g/dL (31.0-37.0); MCV 85.2 fL (80.0-100.0); MEAN PLATELET VOLUME 11.5 fL (7.4-10.4); MONOCYTES 7.5 % (2-11); NEUTROPHILS 83.8 % (40-80); PLATELET COUNT 271 10x3/uL (130-400); RBC 4.26 10x6/uL (4.00-5.40); RDW 15.6 % (11.5-14.5); WBC 13.1 10x3/uL (4.8-10.8)
[2018-02-19 08:34] VITALS: BP 104/49
[2018-02-19 12:12] VITALS: BP 118/67
[2018-02-19 15:14] VITALS: BP 111/69
[2018-02-19 20:00] VITALS: BP 125/67
[2018-02-20] VITALS: BP 128/70
[2018-02-20 04:00] VITALS: BP 130/71
[2018-02-20 06:33] LABS: BASOPHILS 0 % (0-2); EOSINOPHILS 0 % (0-7); HEMATOCRIT 30.8 % (36.0-48.0); HEMOGLOBIN 10.2 g/dL (12-16); IMMATURE GRANULOCYTES 1.3 % (0-5); LYMPHOCYTES 8.9 % (15-50); MCH 28.7 pg (26.0-34.0); MCHC 33.1 g/dL (31.0-37.0); MCV 86.8 fL (80.0-100.0); MEAN PLATELET VOLUME 11.6 fL (7.4-10.4); MONOCYTES 8.9 % (2-11); NEUTROPHILS 80.9 % (40-80); PLATELET COUNT 231 10x3/uL (130-400); RBC 3.55 10x6/uL (4.00-5.40); RDW 15.7 % (11.5-14.5); WBC 10.6 10x3/uL (4.8-10.8)
[2018-02-20 06:42] LABS: ALBUMIN 1.8 g/dL (3.4-5.0); ANION GAP 7.2 mmol/L (8-16); BILIRUBIN - DIRECT 0.15 mg/dL (0.00-0.30); BILIRUBIN - INDIRECT 0.19 mg/dL (0.00-1.00); BILIRUBIN - TOTAL 0.34 mg/dL (0.2-1.3); CALCIUM 7.1 mg/dL (8.5-10.1); POTASSIUM - SERUM 3.4 mmol/L (3.5-5.1); PROTEIN - SERUM 5.7 g/dL (6.4-8.2)
[2018-02-20 06:43] LABS: CARBON DIOXIDE 31.2 mmol/L (21.0-32.0)
[2018-02-20] MEDS ORDERED: BROVANA15 MCG/2 M INH (06:47)
[2018-02-20] MEDS ORDERED: XOPENEX 0.0.63 MG/3 UPD (06:48)
[2018-02-20] MEDS ORDERED: CARDIZEM 90 MG90 MG PO (06:48)
[2018-02-20] MEDS ORDERED: SINGULAIR10 MG PO (06:49)
[2018-02-20] MEDS ORDERED: LASIX40 MG PO (06:49)
[2018-02-20] MEDS ORDERED: FLUTICASONE PRO16 GM NASAL (06:49)
[2018-02-20] MEDS ORDERED: PROTONIX40 MG PO (06:50)
[2018-02-20] MEDS ORDERED: FLORAJEN3 CAPS460 MG PO (06:50)
[2018-02-20] MEDS ORDERED: MEGACE400 MG/10 PO (06:50)
[2018-02-20] MEDS ORDERED: PREDNISONE20 MG PO (06:51)
[2018-02-20] MEDS ORDERED: PULMICORT0.5 MG/21 UPD (06:52)
[2018-02-20] MEDS ORDERED: XANAX0.25 MG PO (06:52)
[2018-02-20] MEDS ORDERED: Nystatin Oral Susp [ PO (06:52)
[2018-02-20 08:34] VITALS: BP 132/59
[2018-02-20 11:05] VITALS: BP 110/61
[2018-02-20 15:42] VITALS: BP 119/64
[2018-02-21] MEDS ORDERED: NYSTATIN ORAL SU5 ML PO (02:31)
[2018-02-21 07:30] LABS: HEPATITIS C ANTIBODY <0.1 (0.0-0.9)
[2018-02-24 19:11] LABS: AEROBE ID Final report (())
== END 2018-02-20 18:23 | DRG 802 ==
LOC: D.M2 11:55 → D.MS 11:55 → D.M2 02-10 16:50
PROVIDERS: Family Medicine; Internal Medicine Hematology & Oncology; Internal Medicine Pulmonary Disease; Specialist
PROC: 0QB23ZX Excision of Right Pelvic Bone, Percutaneous Approach, Diagnostic (ICD-10-PCS; 2018-02-13)
PROC: 07DR3ZX Extraction of Iliac Bone Marrow, Percutaneous Approach, Diagnostic (ICD-10-PCS; principal; 2018-02-13 13:18)
DX: D69.3 Immune thrombocytopenic purpura (principal); J96.21 Acute and chronic respiratory failure with hypoxia; J44.1 Chronic obstructive pulmonary disease with (acute) exacerbation; N17.9 Acute kidney failure, unspecified; E87.1 Hypo-osmolality and hyponatremia; K92.1 Melena; J40 Bronchitis, not specified as acute or chronic; E86.0 Dehydration; E87.6 Hypokalemia; I10 Essential (primary) hypertension; E78.5 Hyperlipidemia, unspecified; R00.0 Tachycardia, unspecified; S00.521A Blister (nonthermal) of lip, initial encounter; K21.9 Gastro-esophageal reflux disease without esophagitis; I48.0 Paroxysmal atrial fibrillation; F41.9 Anxiety disorder, unspecified; E03.9 Hypothyroidism, unspecified; E09.65 Drug or chemical induced diabetes mellitus with hyperglycemia; T38.0X5A Adverse effect of glucocorticoids and synthetic analogues, initial encounter; D64.9 Anemia, unspecified; R53.1 Weakness; E87.5 Hyperkalemia

== ENCOUNTER 2018-02-20 16:13 | Inpatient (IN) | payer MEDICARE, OTHER ==
[~2018-02-20] VITALS: Ht 167.6 cm; Wt 60.8 kg
--- NOTE | ~2018-02-20 | DS ---
PATIENT:JEREMIAH ZAMORANO :40 MEDICAL RECORD: [id number] DISCHARGE SUMMARY ADMISSION DATE: 02/20/18 DISCHARGE DATE: DISCHARGE DIAGNOSES: Acute idiopathic thrombocytopenic purpura, anemia, atrial fibrillation with rapid ventricular response, exacerbation of chronic obstructive pulmonary disease with respiratory failure, hyponatremia. HOSPITAL COURSE: A 77-year-old female admitted from the office with severe exacerbation of COPD, failing outpatient therapy. On admission, she was placed on IV antibiotics and steroids and was noted to have a low platelet count again as low as 2000. She was continued on high-dose steroids. Dr. Mcelroy from hematology was consulted for management. The patient had pulmonary consult with Dr. Gardner and Dr. Saavedra. The patient gradually improved from pulmonary standpoint and developed atrial fibrillation with rapid ventricular rate. She was placed on IV Cardizem and ultimately switched to p.o. With Cardizem her rate converted to sinus with a controlled rate of 60-80. The patient's appetite was poor, placed on Megace with improvement. Platelet count is now over 200,000 and she was switched from IV to p.o. prednisone 60 mg daily, have a 10 mg taper every week. She has been extremely weak and been diuresed with Lasix. She has been accepted for rehab at [facility] and will be discharged there today to have weekly 10 mg prednisone tapering. Continue updrafts and monitor her cardiac status. DISCHARGE MEDICATIONS: Nystatin 5 cc p.o. a.c. and at bedtime, Xanax 0.25 mg q. 6 hours p.r.n. anxiety, Pulmicort 0.5 mg per updraft b.i.d., Brovana updraft 15 mcg b.i.d., Xopenex updrafts 0.63 mg t.i.d., Cardizem 90 mg p.o. b.i.d., Lasix 40 mg p.o. q.a.m., potassium chloride 10 mEq p.o. b.i.d., Singulair 10 mg at bedtime, Flonase nasal spray 2 nasal sprays each nostril daily, Florajen capsule 460 mg p.o. daily, Protonix 40 mg daily, Megace 200 mg daily, prednisone 60 mg daily, valsartan 80 mg/12.5 one q.a.m., levothyroxine 0.025 mg daily, Premarin 0.625 mg daily, Advair Diskus 250/50 one puff b.i.d., Spiriva 18 mcg 1 puff at bedtime, multivitamins 1 daily, calcium carbonate 500 mg p.o. daily, magnesium oxide 400 mg daily, garlic 1 daily, cranberry caplet 400 mg p.o. b.i.d., ascorbic acid with marcial hips 1000 mg p.o. daily, biotin 5 mg p.o. daily, B12 5000 mcg p.o. daily. DIET: Regular as tolerated. TRANSINT:[id number] Voice Confirmation ID: [id number] DOCUMENT ID: [id number] MAYANK ALEGRE MD at 1730 CC: [id number] DICTATION DATE: 02/20/18 0657 DENTIST: 02/21/18 0132 [facility] [address] [id number]
--- NOTE | ~2018-02-20 | RHP ---
PATIENT: JEREMIAH ZAMORANO MEDICAL RECORD: [id number] ACCOUNT: [id number] LOCATION:[facility]1117 : 40 ADMISSION DATE: 02/20/18 REHABILITATION HISTORY AND PHYSICAL EXAMINATION POST ADMISSION PHYSICIAN EXAMINATION DATE OF ADMISSION: 02/20/2018 ADMITTING DIAGNOSIS: Acute exacerbation of chronic obstructive pulmonary disease. HISTORY OF PRESENT ILLNESS: The patient is a 77-year-old female patient who was admitted to inpatient rehab with severe acute exacerbation of chronic obstructive pulmonary disease. She is a female with severe O2 dependence, was admitted to the hospital on 02/08/2018. She said about a week ago she developed a low-grade fever with increasing cough and shortness of breath, it has gotten progressively to over the weekend. She went to an outpatient clinic. They took an x-ray and did some labs, placed on some doxycycline. She became weaker, saw an [employer] in the office on 02/06/2018 and was admitted. Her O2 sat was 80%. She was placed on supplemental O2. Chest x-ray showed some COPD changes and antibiotics were continued on 02/08/2018 as she is still not feeling better and in the office, her O2 sat was 86% on room air. She was tachypneic with audible wheezes. Chest x-ray did not show an infiltrate. She was admitted for acute exacerbation of COPD, hypoxia, and bronchitis. Pulmonary was consulted, started on IV antibiotics and IV steroids and supplemental O2. On admit, she was found to have thrombocytopenia with a platelet count of 2 on admit. Currently, she has been seen by Dr. Mcelroy. She has been receiving Solu-Medrol as well as other therapy. She developed AFib with rapid ventricular response. No history of arrhythmia in the past. Cardiology was consulted and she was started on Cardizem drip. She was placed on 90 mg of Cardizem p.o. b.i.d. now. Previously, she lived alone, was completely independent with ADLs and mobility without aids. She is still driving. Currently, she is mod to max assist for ADLs and mobility. She is on a personnel monitor, normal sinus rhythm. Thrombocytopenia has resolved with steroids, tracheobronchitis or left lower lobe pneumonia is better after completing Levaquin and Rocephin for 7 days. She had some mild edema or small effusions. She is better on Lasix. She becomes fatigued and has dyspnea on exertion. She is wearing continuous O2 at 2 liters and maintains O2 sat greater than 90%. BARRIERS TO DISCHARGE: She lives alone. She got new onset of AFib. She is maintaining sats at this time, but this needs to be monitored. She has prolonged immobility, generalized weakness, especially in the lower extremities affecting her tolerance to PT. She wants to regain her strength and hopefully return back home to her prior level of functioning. COMORBIDITIES: Include severe COPD, left lower lobe pneumonia, bilateral pleural effusions, chronic hypoxic respiratory failure with hypoxia, acute idiopathic thrombocytopenic purpura, hyponatremia, hypokalemia, tracheobronchitis, dehydration, obstructive pulmonary disease, atrial fibrillation with rapid ventricular response, coronary artery disease, status post PTCA with stent placement and severe malnutrition. PAST MEDICAL HISTORY: Significant for a history of sinus problems and dental problems. She has also got a history of coronary artery disease. She got a history of emphysema, COPD, acid reflux, and depression. HISTORY AND PHYSICAL [id number] JEREMIAH ZAMORANO PAST SURGICAL HISTORY: Includes surgeries for fibroid tumors removed. She has had bilateral breast surgery, hysterectomy, and stent placement. ALLERGIES: SULFA. CURRENT MEDICATIONS: Include hydrochlorothiazide 12.5 mg daily, Diovan 80 mg daily, prednisone 60 mg daily, Mag-Ox 400 mg daily, Synthroid 25 mcg daily, estrogen 0.625 mg daily, Pulmicort 0.5 mg b.i.d., Protonix 40 mg daily, Megace 200 mg daily, Floranex 460 mg daily, Lasix 40 mg daily, Flonase nasal spray daily, ascorbic acid 1000 mg daily, Brovana 15 mcg b.i.d., Mycostatin suspension 5 cc q.i.d., Singulair 10 mg at bedtime, Xopenex 0.6 mg q. 8 hours, diltiazem 90 mg b.i.d., Xanax 0.25 mg q. 6 hours, and MiraLax 17 grams in 8 ounces of water daily. HABITS: No current alcohol or tobacco use. FAMILY HISTORY: Noncontributory. SOCIAL HISTORY: The patient hopes to return back home and get back to her prior level of functioning. REVIEW OF SYSTEMS: GENERAL: Does complain of weakness and fatigue. HEENT: Does complain of cold, cough, and congestion. CARDIOVASCULAR: Denies any chest pain. LUNGS: Does complain of shortness of breath especially with any type of exertion. PHYSICAL EXAMINATION: VITAL SIGNS: Stable. She is afebrile. GENERAL: A thin female, in no acute distress, alert upon exam. HEENT: Normocephalic and atraumatic. Mucosa moist. NECK: Supple. No lymphadenopathy. LUNGS: Decreased breath sounds bilaterally. HEART: Regular rate and rhythm. ABDOMEN: Benign. EXTREMITIES: No clubbing, cyanosis or edema. NEUROLOGIC: She does have noted proximal muscle weakness. LABORATORY DATA: White count is 10.8, H&H of 10 and 30, and platelet count was noted to be 218. Her sodium is 144, potassium 3.5, BUN and creatinine of 25 and 1.1, and blood sugar is noted to be 79. 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 The patient had potential to make improvement. We instituted the following multidisciplinary therapies including but not limited to physical, occupational, respiratory, speech, nutritional services, prosthetics and orthotics. Given her complex medical condition and risk for more complications, rehabilitation services cannot be provided at a low level of care such a skilled nurse facility. HISTORY AND PHYSICAL [id number] JEREMIAH ZAMORANO PLAN: 1. Admit to [place] rehabilitation services for intensive inpatient therapy to include the following disciplines: A. Physical therapy to improve gait, all transfer skills and bed mobility to a modified independent level. B. Occupational therapy to a modified independent level. C. Case management to assist with discharge planning and placement options. D. Nutrition to assist with nutritional needs. E. Rehabilitation nursing to assist in monitoring the patient's underlying medical conditions and to assist with any type of bowel or bladder management. 2. The patient's current medication and medical care will be continued. 3. The patient will be placed on standard fall precautions. 4. The patient's estimated length of stay is approximately 7-10 days. 5. We will discuss this patient during care team staff meeting this week. TRANSINT:[id number] Voice Confirmation ID: [id number] DOCUMENT ID: [id number] MARIA M notes whether there has been none or any medical/functional change since admission: - No change since prescreen. MARIA M attests patient continues to be appropriate for IRF: - Continues to be appropriate. ANIVAL HINTON MD at 1812 CC: [id number] DICTATION DATE: 02/21/1835 FORESTRY FACULTY MEMBER: 02/21/18 0957 ADM IN [facility] [address] [id number]
[~2018-02-20 16:13] MED LIST changes: +BROVANA15 MCG/2 M INH; +CARDIZEM 90 MG90 MG PO; +FLORAJEN3 CAPS460 MG PO; +FLUTICASONE PRO16 GM NASAL; +LASIX40 MG PO; +MEGACE400 MG/10 PO; +Nystatin Oral Susp [ PO; +PREDNISONE20 MG PO; +PULMICORT0.5 MG/21 UPD; +SINGULAIR10 MG PO; +XANAX0.25 MG PO; +XOPENEX 0.0.63 MG/3 UPD
[2018-02-20 19:00] VITALS: BP 130/65
[2018-02-21] MEDS ORDERED: NYSTATIN ORAL SU5 ML PO (02:31)
[2018-02-21 04:23] VITALS: BP 130/65; BMI 21.6
[2018-02-21 05:53] LABS: BASOPHILS 0 % (0-2); EOSINOPHILS 0 % (0-7); HEMATOCRIT 30.5 % (36.0-48.0); IMMATURE GRANULOCYTES 0.9 % (0-5); MCH 28.7 pg (26.0-34.0); MCHC 32.8 g/dL (31.0-37.0); MCV 87.6 fL (80.0-100.0); MEAN PLATELET VOLUME 11.4 fL (7.4-10.4); MONOCYTES 8.6 % (2-11); NEUTROPHILS 81.5 % (40-80); PLATELET COUNT 218 10x3/uL (130-400); RBC 3.48 10x6/uL (4.00-5.40); RDW 15.9 % (11.5-14.5); WBC 10.8 10x3/uL (4.8-10.8)
[2018-02-21 06:17] LABS: CALCIUM 7.5 mg/dL (8.5-10.1); CARBON DIOXIDE 28.5 mmol/L (21.0-32.0); CREATININE - SERUM 1.1 mg/dL (0.6-1.3); POTASSIUM - SERUM 3.5 mmol/L (3.5-5.1)
[2018-02-21 08:00] VITALS: BP 146/68
[2018-02-21 13:04] VITALS: Ht 167.6 cm; Wt 60.8 kg
[2018-02-21 19:00] VITALS: BP 123/54
[2018-02-22 06:21] LABS: BASOPHILS 0 % (0-2); EOSINOPHILS 0 % (0-7); HEMATOCRIT 33.1 % (36.0-48.0); HEMOGLOBIN 10.8 g/dL (12-16); IMMATURE GRANULOCYTES 0.8 % (0-5); LYMPHOCYTES 10.2 % (15-50); MCH 28.8 pg (26.0-34.0); MCHC 32.6 g/dL (31.0-37.0); MCV 88.3 fL (80.0-100.0); MEAN PLATELET VOLUME 11.3 fL (7.4-10.4); MONOCYTES 9.1 % (2-11); NEUTROPHILS 79.9 % (40-80); PLATELET COUNT 232 10x3/uL (130-400); RBC 3.75 10x6/uL (4.00-5.40); RDW 16.1 % (11.5-14.5); WBC 10.9 10x3/uL (4.8-10.8)
[2018-02-22 06:30] LABS: ANION GAP 9.8 mmol/L (8-16); CALCIUM 7.6 mg/dL (8.5-10.1); CARBON DIOXIDE 30.4 mmol/L (21.0-32.0); CREATININE - SERUM 1.1 mg/dL (0.6-1.3); POTASSIUM - SERUM 3.2 mmol/L (3.5-5.1)
[2018-02-22 08:00] VITALS: BP 146/67
[2018-02-22 19:00] VITALS: BP 126/65
[2018-02-23 08:42] VITALS: BP 116/66
[2018-02-23 19:00] VITALS: BP 111/58
[2018-02-24 05:59] LABS: BASOPHILS 0 % (0-2); EOSINOPHILS 0.1 % (0-7); HEMOGLOBIN 10.2 g/dL (12-16); IMMATURE GRANULOCYTES 0.7 % (0-5); LYMPHOCYTES 9.1 % (15-50); MCH 29.1 pg (26.0-34.0); MCHC 32.9 g/dL (31.0-37.0); MCV 88.3 fL (80.0-100.0); MEAN PLATELET VOLUME 10.5 fL (7.4-10.4); MONOCYTES 4.7 % (2-11); NEUTROPHILS 85.4 % (40-80); PLATELET COUNT 174 10x3/uL (130-400); RBC 3.51 10x6/uL (4.00-5.40); RDW 16.3 % (11.5-14.5); WBC 11.8 10x3/uL (4.8-10.8)
[2018-02-24 06:09] LABS: ANION GAP 11.9 mmol/L (8-16); CALCIUM 7.7 mg/dL (8.5-10.1); CARBON DIOXIDE 30.4 mmol/L (21.0-32.0); CREATININE - SERUM 1.1 mg/dL (0.6-1.3); POTASSIUM - SERUM 3.3 mmol/L (3.5-5.1)
[2018-02-24 08:00] VITALS: BP 138/62
[2018-02-24 19:00] VITALS: BP 122/66
[2018-02-25 08:00] VITALS: BP 120/72
[2018-02-25 23:34] VITALS: BP 120/84
[2018-02-26 08:57] VITALS: BP 166/58
[2018-02-26 20:11] VITALS: BP 119/46
[2018-02-27 06:31] LABS: ANION GAP 14.4 mmol/L (8-16); CALCIUM 8.1 mg/dL (8.5-10.1); CARBON DIOXIDE 28.5 mmol/L (21.0-32.0); CREATININE - SERUM 1.2 mg/dL (0.6-1.3)
[2018-02-27 06:32] LABS: POTASSIUM - SERUM 2.9 mmol/L (3.5-5.1)
[2018-02-27 07:30] LABS: BASOPHILS 0 % (0-2); EOSINOPHILS 0.3 % (0-7); HEMATOCRIT 34.7 % (36.0-48.0); HEMOGLOBIN 11.5 g/dL (12-16); IMMATURE GRANULOCYTES 0.7 % (0-5); LYMPHOCYTES 6.5 % (15-50); MCH 29.5 pg (26.0-34.0); MCHC 33.1 g/dL (31.0-37.0); MEAN PLATELET VOLUME 10.5 fL (7.4-10.4); MONOCYTES 3.9 % (2-11); NEUTROPHILS 88.6 % (40-80); PLATELET COUNT 143 10x3/uL (130-400); WBC 12.9 10x3/uL (4.8-10.8)
[2018-02-27 08:00] VITALS: BP 124/63
[2018-02-27 19:05] VITALS: BP 122/61
[2018-03-01 00:16] VITALS: BP 100/57
[2018-03-01 07:16] LABS: BASOPHILS 0 % (0-2); EOSINOPHILS 0.5 % (0-7); HEMATOCRIT 34.3 % (36.0-48.0); HEMOGLOBIN 11.5 g/dL (12-16); LYMPHOCYTES 6.4 % (15-50); MCH 29.9 pg (26.0-34.0); MCHC 33.5 g/dL (31.0-37.0); MCV 89.1 fL (80.0-100.0); MEAN PLATELET VOLUME 11.7 fL (7.4-10.4); MONOCYTES 4.9 % (2-11); NEUTROPHILS 87.2 % (40-80); PLATELET COUNT 142 10x3/uL (130-400); RBC 3.85 10x6/uL (4.00-5.40); RDW 17.2 % (11.5-14.5)
[2018-03-01 07:31] LABS: ANION GAP 11.5 mmol/L (8-16); CALCIUM 8.5 mg/dL (8.5-10.1); CARBON DIOXIDE 28.8 mmol/L (21.0-32.0); CREATININE - SERUM 1.3 mg/dL (0.6-1.3); POTASSIUM - SERUM 3.3 mmol/L (3.5-5.1)
[2018-03-01 19:00] VITALS: BP 106/61
[2018-03-02 08:00] VITALS: BP 126/59
[2018-03-02 19:00] VITALS: BP 102/43
[2018-03-03 07:16] LABS: ANION GAP 12.9 mmol/L (8-16); CALCIUM 8.1 mg/dL (8.5-10.1); CARBON DIOXIDE 28.7 mmol/L (21.0-32.0); CREATININE - SERUM 1.3 mg/dL (0.6-1.3); POTASSIUM - SERUM 3.6 mmol/L (3.5-5.1)
[2018-03-03 08:00] VITALS: BP 112/44
[2018-03-03 10:17] LABS: HEMATOCRIT 33.6 % (36.0-48.0); HEMOGLOBIN 11.2 g/dL (12-16); LYMPHOCYTES 6.3 % (15-50); MCH 29.9 pg (26.0-34.0); MCHC 33.3 g/dL (31.0-37.0); MCV 89.6 fL (80.0-100.0); MEAN PLATELET VOLUME 11.6 fL (7.4-10.4); NEUTROPHILS 87.1 % (40-80); PLATELET COUNT 128 10x3/uL (130-400); RBC 3.75 10x6/uL (4.00-5.40); RDW 17.4 % (11.5-14.5); WBC 10.7 10x3/uL (4.8-10.8)
[2018-03-03 20:19] VITALS: BP 105/48
[2018-03-03 21:41] VITALS: BP 105/48
== END 2018-03-04 12:12 | disposition home health service (06) | DRG 91 ==
LOC: D.REHAB 16:13
PROVIDERS: Emergency Medicine
DX: G72.9 Myopathy, unspecified (principal); J18.9 Pneumonia, unspecified organism; E43 Unspecified severe protein-calorie malnutrition; J44.1 Chronic obstructive pulmonary disease with (acute) exacerbation; J90 Pleural effusion, not elsewhere classified; J96.11 Chronic respiratory failure with hypoxia; D69.3 Immune thrombocytopenic purpura; E87.1 Hypo-osmolality and hyponatremia; E87.6 Hypokalemia; E86.0 Dehydration; I48.91 Unspecified atrial fibrillation; Z95.5 Presence of coronary angioplasty implant and graft; K21.9 Gastro-esophageal reflux disease without esophagitis; Z68.21 Body mass index [BMI] 21.0-21.9, adult; E03.9 Hypothyroidism, unspecified

== ENCOUNTER → 2018-03-15 12:10 | Outpatient (CLI) | payer MEDICARE, OTHER ==
[2018-02-21 13:04] VITALS: BMI 21.6
[~2018-03-15 12:10] MED LIST changes: +FERROUS SULFAT325 MG PO; +LEVOFLOXACIN500 MG PO; +NYSTATIN ORAL SU5 ML PO
== END | disposition home or self-care (01) ==
LOC: D.LABREF 12:10
DX: J44.9 Chronic obstructive pulmonary disease, unspecified (principal); J18.9 Pneumonia, unspecified organism; I48.91 Unspecified atrial fibrillation

== ENCOUNTER 2018-03-22 11:03 | Inpatient (IN) | payer MEDICARE, OTHER ==
[~2018-03-22] VITALS: Ht 167.6 cm; Wt 56.6 kg
--- NOTE | ~2018-03-22 | HP ---
PATIENT: JEREMIAH ZAMORANO MEDICAL RECORD: [id number] ACCOUNT: [id number] LOCATION:[address] : 40 ADMISSION DATE: 03/22/18 PCP: MAYANK ALEGRE MD HISTORY AND PHYSICAL EXAMINATION REASON FOR ADMISSION: General fatigue, shortness of breath, and edema. HISTORY OF PRESENT ILLNESS: The patient is a 77-year-old female who was discharged from [facility] approximately a week and a half ago. She was previously hospitalized in the hospital for acute ITP and COPD exacerbation and atrial fibrillation with rapid ventricular response. She saw Dr. Mcelroy from hematology at that time, was placed on high-dose steroids with improvement in her platelet count. She had seen pulmonary since discharge from rehab and they had taken her off of updrafts she states and placed her on inhalers only. She has felt more fatigued that she has tapered her prednisone from 60 down to 20 mg daily. She had blood drawn in the office yesterday and her white count was 26,000, platelet count was over 150,000. Reason for leukocytosis is currently unknown. On her discharge, white count was around 11,000. She denies fever, productive cough, abdominal pain, diarrhea, or dysuria. Because of increasing shortness of breath, general malaise, and leukocytosis as well as swelling in her left lower extremity, she has been admitted for further evaluation. PAST MEDICAL HISTORY: Recent onset AFib with rapid ventricular response, hyponatremia, anemia, COPD exacerbation with chronic O2 dependent COPD, ITP, recent left lower lobe pneumonia, pleural effusion, dehydration, CAD post-PTCA, GERD, depression, history of FEV1 of 0.9 liters with 20% improvement with bronchodilators in the past, duodenal adenoma, history of cataracts. PAST SURGICAL HISTORY: PTCA, duodenal adenoma removed by endoscopy May of 2017, bilateral Breast fibroid tumors removed, and hysterectomy. ALLERGIES: SULFA. FAMILY HISTORY: Positive for CAD in parents and 1 sibling. SOCIAL HISTORY: She is a , lives at home alone, on O2. Her son lives in ____ he is very good about coming to help and care for her. She does not smoke currently, but had a significant smoking history until 10 years ago when she quit. MEDICATIONS: Brovana updraft q.12 hours, Xopenex updrafts t.i.d., Spiriva 1 puff at bedtime, diltiazem 90 mg p.o. b.i.d., valsartan HCT 80 mg/12.5 one daily, Xanax 0.25 q.6 hours p.r.n. anxiety, calcium carbonate with vitamin D 500 mg p.o. daily, Lasix 40 mg p.o. q.a.m., Pulmicort 0.5 in updraft q.12 hours. Advair Diskus 250/50 one puff b.i.d., Singulair 10 mg at bedtime, Flonase nasal spray 2 nasal sprays each nostril daily, lactobacillus 460 mg capsule p.o. daily, mag oxide 400 mg daily, Protonix 40 mg a day, Premarin 0.625 mg a day, Levoxyl 0.25 mg p.o. q.a.m. a.c., Megace 200 mg p.o. daily, prednisone 20 mg p.o. daily, vitamin C 1000 mg p.o. daily, Biotin 5 mg daily, vitamin B12 5000 mcg p.o. daily, Centrum Silver 1 daily, cranberry 4 mg p.o. daily, nystatin 5 cc p.o. a.c. and at bedtime, KCl 10 mEq p.o. b.i.d. REVIEW OF SYSTEMS: GENERAL: Marked fatigue, poor appetite. No fever. HISTORY AND PHYSICAL [id number] JEREMIAH ZAMORANO HEENT: No recent new visual change, sinus congestion, or sore throat. She has hearing aids. RESPIRATORY: Chronic dyspnea worse over the last several days. She has had no sputum production or cough. CARDIAC: Denies chest pain, recent palpitations. She has had increasing edema in both of her legs, but worse on the left foot and ankle for the last week. GASTROINTESTINAL: No nausea or vomiting. GENITOURINARY: No dysuria. GYNECOLOGIC: No vaginal bleeding. PSYCHIATRIC: Admits to depressed mood due to her recent illness and her concerns of her son having to stay with her and missed his job. INTEGUMENTARY: No rash or itching. PHYSICAL EXAMINATION: VITAL SIGNS: Temperature is 97.3 Fahrenheit orally, heart rate is 84 and regular, respirations are 18, blood pressure 120/64, sat 99% on 2 liters. GENERAL: The patient is chronically ill appearing and tearful. Her eyes are clear. Oropharynx unremarkable except for dry mucous membranes. NECK: Supple. CHEST: Increased dorsal kyphosis in AP diameter. She has distant breath sounds bilaterally with crackles in the left base. HEART: Tachycardic without murmur. ABDOMEN: Soft, nontender. SKIN: Shows small stage II decubitus on her lower buttocks. EXTREMITIES: She has 2+ edema of her left foot and ankle, 1+ on the right. Homans' sign is negative. NEUROLOGIC: Oriented to person, place, and time. Cranial nerves intact. Gait not tested due to dyspnea. LABORATORY DATA: Lab results in the hospital are pending. Her white count in my office was 26,000 yesterday, BUN 66, creatinine was 2.2. Chest x-ray and UA are pending. ASSESSMENT: 1. Leukocytosis, etiology unknown. 2. Chronic O2 dependent COPD exacerbation. 3. Prerenal azotemia positive from diuretic use and poor appetite. 4. Cachexia. 5. Recent atrial fibrillation. 6. Recent pneumonia. 7. CAD. 8. Hypothyroidism. PLAN: The patient will be admitted, have blood and urine cultures obtained. Hold antibiotics at this time. Dr. Mcelroy from hematology will see the patient concerning her white count. Her ITP currently appears to be under control with platelet count of over 150,000. Pulmonary updrafts. Further workup pending clinical course. TRANSINT:[id number] Voice Confirmation ID: [id number] DOCUMENT ID: [id number] HISTORY AND PHYSICAL [id number] JEREMIAH ZAMORANO TIMOTHY MD at 1538 CC: [id number] DICTATION DATE: 03/22/18 1308 CODING COMPLIANCE AUDITOR: 03/22/18 1424 ADM IN [facility] [address] [place] [address]
--- NOTE | ~2018-03-22 | MORECARE ---
CASE MANAGEMENT DISCHARGE SUMMARY PATIENT: JEREMIAH ZAMORANO UNIT: [id number] ADM DATE: 03/22/18 AGE: 77 : 40 SEX: F ROOM/BED: D.9811 AUTHOR: CHAPINCITO SAAVEDRA PHYSICIAN: REFERRING PHYSICIAN: MAYANK ALEGRE MD DATE OF SERVICE: 03/24/18 Discharge Plan Patient Name: JEREMIAH ZAMORANO Facility: [facility]:[place] : 1940 Planned Disposition: Usp Facility Anticipated Discharge Date: 03/24/18 Discharge Date: 03/24/2018 Expected LOS: 2 Initial Reviewer: [email or web address] Initial Review Date: 03/22/2018 Generated: 03/24/18 5:46 pm Comments DCP- Discharge Planning Updated by [email or web address]: Carlos Lackey on 03/24/18 3:[address] Patient Name: JEREMIAH ZAMORANO Admission Status: Urgent Accout number: [id number] Admission Date: 03-22-2018 : 1940 Admission Diagnosis:SHORTNESS OF BREATH Attending: MAYANK ALEGRE Current LOS: 2 Anticipated DC Date: 03-24-2018 Planned Disposition: Usp Facility Primary Insurance: MEDICARE A & B PLANNED EXTERNAL PROVIDER: [facility], MEDICARE REHAB BED Discharge Planning Comments: CM MET WITH PT IN ROOM TO DISCUSS DISCHARGE PLANNING AND NEEDS. JEREMIAH ZAMORANO provided verbal consent to discuss current and ongoing needs with/in the presence of: SON, KAYLEE ZAMORANO. PT REPORTS LIVING AT HOME INDEPENDENTLY AND ALONE. PT HAS BEDSIDE COMMODE, NEBULIZER AND HOME AND PORTABLE OXYGEN. PT ALSO HAS NEW 4 WHEELED WALKER WITH SEAT AND BRAKES WITH NO MEDICAL EQUIPMENT PROVIDER PREFERENCE. PT HAS HOME HEALTH WITH [facility] FOR [facility]URSING AND THERAPY. CM DISCUSSED AVAILABILITY OF HOME HEALTH, REHAB SERVICES AND MEDICAL EQUIPMENT. PT REPORTS SHE WAS DISCHARGED FROM INPATIENT REHAB TOO SOON AND WANTS REHAB AT [facility]. PT'S SON REPORTS HE HAS TALKED TO FELICIA AT [facility] ALREADY. PT SIGNED CHOICE FOR [facility]. IMPORTANT MESSAGE FROM MEDICARE PROVIDED AND EXPLAINED. CM CALLED AND SPOKE TO FELICIA OF [facility] WHO REPORTS THEY WILL USE THE THREE MIDNIGHT STAY FROM INPATIENT REHAB IN THE LAST 30 DAYS SO PT DOES NOT NEED THREE MIDNIGHTS IN INPATIENT BED FROM THIS STAY FOR MEDICARE REHAB SERVICES. IF PT IS DISCHARGED OVER WEEKEND, FELICIA ASKED TO BE CALLED AT [phone], AND SHE MAY BE ABLE TO DO THE INTAKE AND ADMIT ON THE WEEKEND. CM [facility] AT [phone]. CM WAITING ADMISSION DETERMINATION FROM [facility]. IF PT IS DISCHARGED OVER WEEKEND, FELICIA OF [facility] ASKED TO BE CALLED AT [phone], AND SHE MAY BE ABLE TO DO THE INTAKE AND ADMIT ON THE WEEKEND. Surveying Technician: Carlos Lackey Appended by Carlos Lackey on 03/24/2018 16:44 JUNIOR ANALYST: CM RECEIVED DISCHARGE ORDER, SPOKE TO PT'S SON WHO REPORTS HE WILL DRIVE PT TONIGHT TO REHAB. PT IN AGREEMENT WITH DISCHARGE TO REHAB NOW. CM CALLED [facility], , SPOKE TO FELICIA WHO REPORTS THEY WILL ACCEPT NOW. CM FAXED DISCHARGE INFORMATION TO [facility] AT [phone]. BEDSIDE NURSE NOTIFIED. CARLOS LACKEY, CASE MANAGEMENT DCPIA - Discharge Planning Initial Assessment Updated by [email or web address]: Carlos Lackey on 03/24/18 3:10 pm * Is the patient Alert and Oriented? Yes * How many steps to enter\exit or inside your home? NONE * PCP DR. ALEGRE * Pharmacy [facility] [address] * Preadmission Environment Home Alone * ADLs Independent * Equipment Back Brace Nebulizer Oxygen * Other Equipment HOME AND PORTABLE OXYGEN * List name and contact numbers for known caregivers / representatives who currently or will assist patient after discharge: KAYLEE ZAMORANO, SON, * Verbal permission to speak to the caregivers and representatives has been obtained from the patient. Yes * Community resources currently utilized Home Health * Please name any agencies selected above. [facility] * Additional services required to return to the preadmission environment? Yes * Can the patient safely return to the preadmission environment? Yes * Has this patient been hospitalized within the prior 30 days at any hospital? Yes External Providers [facility] Provider[facility] Next Contact Date: 03/24/2018 Service Request Date: Service Type: Resolution: Reviewer: Comments: Coverage Notice Reviewer: [email or web address] - Carlos Lackey Notice Issued Date-Time: 03/24/2018 11:40 Notice Type: IM Discharge Notice Notice Delivered To: Patient Relationship to Patient: Technical Services Coordinator Name: Delivery Method: HAND - Hand Delivered Esther Days: Prior Verbal Notification: Recipient Understood Notice: Yes Recipient Signature: Yes Med Rec Note Co-signed by Attending: Coverage Notice Comment: Reviewer: [email or web address] Tatyana Lackey Notice Issued Date-Time: 03/24/2018 11:40 Notice Type: Patient Choice Letter Notice Delivered To: Patient Relationship to Patient: Technical Services Coordinator Name: Delivery Method: HAND - Hand Delivered Esther Days: Prior Verbal Notification: Recipient Understood Notice: Yes Recipient Signature: Yes Med Rec Note Co-signed by Attending: Coverage Notice Comment: [facility] Last DP export: 03/24/18 2:18 Patient Name: JEREMIAH ZAMORANO Page [phone] at 1646 All edits/amendments must be made on the electronic document DICTATION DATE: 03/24/181644 EXHAUST EMISSIONS INSPECTOR: SARIKA 03/24/181644 RPT#: [id number] DC DATE:03/24/18 STATUS: DIS IN [facility] [address] [place] [address] END OF REPORT
--- NOTE | ~2018-03-22 | MORECARE ---
CASE MANAGEMENT DISCHARGE SUMMARY PATIENT: JEREMIAH ZAMORANO UNIT: [id number] ADM DATE: 03/22/18 AGE: 77 : 40 SEX: F ROOM/BED: D.8252 AUTHOR: QUENTINDOC PHYSICIAN: REFERRING PHYSICIAN: MAYANK ALEGRE MD DATE OF SERVICE: 03/24/18 Discharge Plan Patient Name: JEREMIAH ZAMORANO Facility: [facility]:[place] : 1940 Planned Disposition: Senior Care Facility Anticipated Discharge Date: 03/24/18 Discharge Date: Expected LOS: 2 Initial Reviewer: [email or web address] Initial Review Date: 03/22/2018 Generated: 03/24/18 4:18 pm DCPIA - Discharge Planning Initial Assessment Updated by [email or web address]: Carlos Jimenez on 03/24/18 3:10 pm * Is the patient Alert and Oriented? Yes * How many steps to enter\exit or inside your home? NONE * PCP DR. ALEGRE * Pharmacy [facility] [address] * Preadmission Environment Home Alone * ADLs Independent * Equipment Back Brace Nebulizer Oxygen * Other Equipment HOME AND PORTABLE OXYGEN * List name and contact numbers for known caregivers / representatives who currently or will assist patient after discharge: KAYLEE ZAMORANO, SON, * Verbal permission to speak to the caregivers and representatives has been obtained from the patient. Yes * Community resources currently utilized Home Health * Please name any agencies selected above. [facility] * Additional services required to return to the preadmission environment? Yes * Can the patient safely return to the preadmission environment? Yes * Has this patient been hospitalized within the prior 30 days at any hospital? Yes Coverage Notice Reviewer: [id number] Jimenez Notice Issued Date-Time: 03/24/2018 11:40 Notice Type: IM Discharge Notice Notice Delivered To: Patient Relationship to Patient: Kennel Attendant Name: Delivery Method: HAND - Hand Delivered Esther Days: Prior Verbal Notification: Recipient Understood Notice: Yes Recipient Signature: Yes Med Rec Note Co-signed by Attending: Coverage Notice Comment: Reviewer: [id number] Jimenez Notice Issued Date-Time: 03/24/2018 11:40 Notice Type: Patient Choice Letter Notice Delivered To: Patient Relationship to Patient: Kennel Attendant Name: Delivery Method: HAND - Hand Delivered Esther Days: Prior Verbal Notification: Recipient Understood Notice: Yes Recipient Signature: Yes Med Rec Note Co-signed by Attending: Coverage Notice Comment: [facility] Last DP export: 03/24/18 2:06 Patient Name: JEREMIAH ZAMORANO Page [phone] at 1518 All edits/amendments must be made on the electronic document DICTATION DATE: 03/24/181517 RIBBON CLEANER: SARIKA 03/24/181517 RPT#: [id number] DC DATE: STATUS: ADM IN [facility] [address] [place] [address] END OF REPORT
--- NOTE | ~2018-03-22 | MORECARE ---
CASE MANAGEMENT DISCHARGE SUMMARY PATIENT: JEREMIAH ZAMORANO UNIT: [id number] ADM DATE: 03/22/18 AGE: 77 : 40 SEX: F ROOM/BED: D.3861 AUTHOR: CHAPNICITO SAAVEDRA PHYSICIAN: REFERRING PHYSICIAN: MAYANK ALEGRE MD DATE OF SERVICE: 03/24/18 Discharge Plan Patient Name: JEREMIAH ZAMORANO [facility] [facility] 1940 Planned Disposition: [facility] Facility Anticipated Discharge Date: 03/24/18 Discharge Date: Expected LOS: 2 Initial Reviewer: [email or web address] Initial Review Date: 03/22/2018 Generated: 03/24/18 4:06 pm External Providers External Provider: [facility] Next Contact Date: 03/25/2018 Service Request Date: Service Type: Resolution: Reviewer: Comments: Coverage Notice Reviewer: NIRMAL Jimenez Notice Issued Date-Time: 03/24/2018 11:40 Notice Type: IM Discharge Notice Notice Delivered To: Patient Relationship to Patient: Printing Machine Operator Name: Delivery Method: HAND - Hand Delivered Esther Days: Prior Verbal Notification: Recipient Understood Notice: Yes Recipient Signature: Yes Med Rec Note Co-signed by Attending: Coverage Notice Comment: Reviewer: NIRMAL Jimenez Notice Issued Date-Time: 03/24/2018 11:40 Notice Type: Patient Choice Letter Notice Delivered To: Patient Relationship to Patient: Printing Machine Operator Name: Delivery Method: HAND - Hand Delivered Esther Days: Prior Verbal Notification: Recipient Understood Notice: Yes Recipient Signature: Yes Med Rec Note Co-signed by Attending: Coverage Notice Comment: [facility] Patient Name: JEREMIAH ZAMORANO Page [phone] at 1506 All edits/amendments must be made on the electronic document DICTATION DATE: 03/24/18 1505 PHARMACY SCHEDULER: SARIKA 03/24/18 1505 RPT#: [id number] DC DATE: STATUS: ADM IN [facility] [address] [place] [address] END OF REPORT
--- NOTE | ~2018-03-22 | CN ---
PATIENT NAME:JEREMIAH PULIDO MEDICAL RECORD: [id number] : 40 LOCATION:D. D.2118 ADMIT DATE: 03/22/18 ACCOUNT: [id number] CONSULTING PHYSICIAN: MAYITO ROPER MD REFERRING PHYSICIAN: NADER SEN MD DATE OF CONSULTATION: 03/23/2018 CONSULT REQUESTING PHYSICIAN: Nader Sen MD REASON FOR CONSULTATION: Leukocytosis, shortness of breath. HISTORY OF PRESENT ILLNESS: Ms. Pulido is a 77-year-old female, very well known to me with a history of COPD, nocturnal hypoxia, gastroesophageal reflux disease. Recently, she was hospitalized for pneumonia and for thrombocytopenia. She was seen in Dr. Sen's office. WBC was done and had leukocytosis. She has significant leukocytosis of 26,000. Denies any fever. She has a cough without much sputum production. There are no night sweats. REVIEW OF SYSTEMS: As in history of present illness. PAST MEDICAL HISTORY: 1. COPD of severe degree. FEV1 of 20%. 2. Chronic hypoxic respiratory failure. 3. Gastroesophageal reflux disease. 4. History of duodenal adenoma, removed. 5. Coronary artery disease. 6. History of thrombocytopenia a month ago. PAST SURGICAL HISTORY: 1. She is status post angioplasty and stent placement. 2. Cataract surgery. ALLERGIES: SHE IS ALLERGIC TO SULFA. MEDICATIONS: [employer] is reviewed. PERSONAL AND SOCIAL HISTORY: The patient is a . She has remote history of smoking. She is a nondrinker. FAMILY HISTORY: Noncontributory. PHYSICAL EXAMINATION: GENERAL: Now, the patient is lying comfortably in bed. She is not in acute distress. VITAL SIGNS: The blood pressure is 114/60, pulse is 56, respiration is 20, temperature 98.6, SPO2 is 97% on nasal cannula. HEENT: Conjunctivae are pink. Sclerae are not icteric. NECK: Supple, no JVD. CHEST: There is no wheeze, no rales. HEART: Rhythm regular, normal sound, no murmur. ABDOMEN: Soft, bowel sounds present. No hepatosplenomegaly. RECTAL: Deferred. EXTREMITIES: No cyanosis, no clubbing, no pedal edema. SKIN: Warm, normal turgor. CENTRAL NERVOUS SYSTEM: The patient is awake and alert. There are no obvious CONSULT REPORT [id number] JEREMIAH PULIDO cranial nerve abnormality. The gait was not tested. CHEST RADIOGRAPH: There are no acute infiltrate. LABORATORY DATA: CBC: The WBC is 26,000. IMPRESSION: 1. Acute exacerbation of COPD. 2. Tracheobronchitis, rule out pneumonia. 3. Chronic hypoxic respiratory failure. 4. Leukocytosis, that is improving. 5. Bpbtd-ty-cbhsqdr kidney injury. 6. Hypothyroidism. 7. Gastroesophageal reflux disease. RECOMMENDATION: 1. I had detailed discussion with the patient while she is in the hospital. We will continue Brovana/budesonide nebulizer, albuterol/ipratropium nebulizer. We will hold on Tudorza. We will hold on Advair. 2. Decrease methylprednisolone IV. 3. Continue cefepime and Levaquin. 4. Follow up labs and chest radiograph, possible transfer to the rehab in [facility]. Dr. Sen, thank you for involving me in the care of Ms. Pulido. TRANSINT:[id number] Voice Confirmation ID: [id number] DOCUMENT ID: [id number] MAYITO ROPER MD at 1711 CC: [id number] DICTATION DATE: 03/23/18 1532 FOREST MANAGEMENT PROFESSOR: 03/23/18 1719 DIS IN 03/24/18 [address] [place] [address]
[~2018-03-22 11:03] MED LIST changes: -FERROUS SULFAT325 MG PO; -LEVOFLOXACIN500 MG PO
[2018-03-22 12:48] VITALS: BP 128/64; BMI 19.2
[2018-03-22 13:35] LABS: ALBUMIN 3.2 g/dL (3.4-5.0); ANION GAP 21.6 mmol/L (8-16); BILIRUBIN - DIRECT 0.13 mg/dL (0.00-0.30); BILIRUBIN - INDIRECT 0.27 mg/dL (0.00-1.00); BILIRUBIN - TOTAL 0.4 mg/dL (0.2-1.3); CALCIUM 8.9 mg/dL (8.5-10.1); CARBON DIOXIDE 18.4 mmol/L (21.0-32.0); CREATININE - SERUM 2.3 mg/dL (0.6-1.3); MAGNESIUM - SERUM 1.3 mg/dL (1.8-2.4); PHOSPHOROUS 4.2 mg/dL (2.5-4.9)
[2018-03-22 13:41] LABS: HEMATOCRIT 34.7 % (36.0-48.0); HEMOGLOBIN 11.4 g/dL (12-16); MCH 30.6 pg (26.0-34.0); MCHC 32.9 g/dL (31.0-37.0); MCV 93.3 fL (80.0-100.0); MEAN PLATELET VOLUME 10.6 fL (7.4-10.4); PLATELET COUNT 154 10x3/uL (130-400); RBC 3.72 10x6/uL (4.00-5.40); RDW 18.6 % (11.5-14.5); WBC 26.9 10x3/uL (4.8-10.8)
[2018-03-22 14:32] LABS: LYMPHOCYTES 15 % (15-50); MONOCYTES 6 % (2-11); NEUTROPHILS 66 % (40-80)
[2018-03-22 14:33] LABS: PLATELET ESTIMATE NORMAL
[2018-03-22 16:03] VITALS: BP 128/64
[2018-03-22 17:11] LABS: APPEARANCE HAZY (CLEAR); BILIRUBIN NEGATIVE (NEGATIVE); COLOR YELLOW (YELLOW); GLUCOSE NEGATIVE (NEGATIVE); KETONE NEGATIVE (NEGATIVE); NITRITE NEGATIVE (NEGATIVE); PROTEIN NEGATIVE (NEGATIVE); UROBILINOGEN NORMAL (NORMAL)
[2018-03-22 17:12] LABS: BACTERIA FEW /hpf (NONE SEEN); EPITHELIAL CELLS 0-5 /hpf (0-5); RED CELLS - URINE 0-5 /hpf (0-5); YEAST >1+ /hpf (NONE SEEN)
[2018-03-22 20:00] VITALS: BP 112/56
[2018-03-23 04:00] VITALS: BP 114/60
[2018-03-23 05:56] LABS: BASOPHILS 0.2 % (0-2); EOSINOPHILS 0 % (0-7); HEMOGLOBIN 9.2 g/dL (12-16); LYMPHOCYTES 7.9 % (15-50); MCH 30.2 pg (26.0-34.0); MCHC 33.2 g/dL (31.0-37.0); MEAN PLATELET VOLUME 10.3 fL (7.4-10.4); MONOCYTES 1.7 % (2-11); NEUTROPHILS 79.2 % (40-80); PLATELET COUNT 153 10x3/uL (130-400); RBC 3.05 10x6/uL (4.00-5.40); RDW 18.3 % (11.5-14.5)
[2018-03-23 06:12] LABS: HEMATOCRIT 27.7 % (36.0-48.0); MCV 90.8 fL (80.0-100.0); WBC 19.1 10x3/uL (4.8-10.8)
[2018-03-23 06:19] LABS: ANION GAP 17.2 mmol/L (8-16); CALCIUM 7.6 mg/dL (8.5-10.1); CARBON DIOXIDE 20.5 mmol/L (21.0-32.0); CREATININE - SERUM 1.8 mg/dL (0.6-1.3)
[2018-03-23 06:21] LABS: POTASSIUM - SERUM 3.7 mmol/L (3.5-5.1)
[2018-03-23 08:22] VITALS: BP 108/50
[2018-03-23 12:25] VITALS: Ht 167.6 cm; Wt 56.6 kg
[2018-03-23 13:18] VITALS: BP 124/54
[2018-03-23 17:13] VITALS: BP 114/46
[2018-03-23 21:57] VITALS: BP 120/53
[2018-03-24 01:04] VITALS: BP 106/50
[2018-03-24 05:40] VITALS: BP 113/56
[2018-03-24 08:50] LABS: BASOPHILS 0.2 % (0-2); EOSINOPHILS 0 % (0-7); HEMATOCRIT 28.1 % (36.0-48.0); HEMOGLOBIN 9.3 g/dL (12-16); IMMATURE GRANULOCYTES 6.6 % (0-5); LYMPHOCYTES 5.4 % (15-50); MCH 30.4 pg (26.0-34.0); MCHC 33.1 g/dL (31.0-37.0); MCV 91.8 fL (80.0-100.0); MEAN PLATELET VOLUME 9.7 fL (7.4-10.4); MONOCYTES 2.5 % (2-11); NEUTROPHILS 85.3 % (40-80); PLATELET COUNT 157 10x3/uL (130-400); RBC 3.06 10x6/uL (4.00-5.40); RDW 18.6 % (11.5-14.5)
[2018-03-24 09:39] VITALS: BP 122/62
[2018-03-24 11:34] VITALS: BP 119/51
[2018-03-24 14:54] VITALS: BP 123/58
[2018-03-24] MEDS ORDERED: FERROUS SULFAT325 MG PO (15:29)
[2018-03-24] MEDS ORDERED: LEVOFLOXACIN500 MG PO (15:32)
[2018-03-24 16:15] LABS: SPE - A/G RATIO 0.9 (0.7-1.7); SPE - ALBUMIN 2.6 g/dL (2.9-4.4); SPE - ALPHA-1 GLOBULIN 0.3 g/dL (0.0-0.4); SPE - BETA GLOBULIN 0.8 g/dL (0.7-1.3); SPE - GAMMA GLOBULIN 0.7 g/dL (0.4-1.8); SPE - M-SPIKE Not Observed g/dL (Not Observed); SPE - TOTAL PROTEIN 5.4 g/dL (6.0-8.5)
== END 2018-03-24 16:33 | DRG 202 ==
LOC: D.MS 11:03 → D.M2 11:33
PROVIDERS: Family Medicine; Internal Medicine Hematology & Oncology
DX: J40 Bronchitis, not specified as acute or chronic (principal); J44.1 Chronic obstructive pulmonary disease with (acute) exacerbation; J96.11 Chronic respiratory failure with hypoxia; R64 Cachexia; Z68.1 Body mass index [BMI] 19.9 or less, adult; N17.9 Acute kidney failure, unspecified; N39.0 Urinary tract infection, site not specified; D69.3 Immune thrombocytopenic purpura; Z99.81 Dependence on supplemental oxygen; E03.9 Hypothyroidism, unspecified; I25.10 Atherosclerotic heart disease of native coronary artery without angina pectoris; K21.9 Gastro-esophageal reflux disease without esophagitis; N18.9 Chronic kidney disease, unspecified; I48.91 Unspecified atrial fibrillation; D50.9 Iron deficiency anemia, unspecified; E86.0 Dehydration; Z87.891 Personal history of nicotine dependence

== ENCOUNTER → 2018-11-03 12:27 | Outpatient (CLI) | payer MEDICARE, OTHER ==
[2018-03-23 12:25] VITALS: BMI 19.2
[~2018-11-03 12:27] MED LIST changes: +FERROUS SULFAT325 MG PO; +LEVOFLOXACIN500 MG PO
== END | disposition home or self-care (01) ==
LOC: D.US 12:27
PROVIDERS: ATTEND Family Medicine
DX: R60.0 Localized edema (principal)

== ENCOUNTER 2018-11-21 19:00 | Outpatient (CLI) | payer MEDICARE, OTHER ==
[2018-03-23 12:25] VITALS: BMI 19.2
== END 2018-11-21 23:59 | disposition home or self-care (01) ==
LOC: D.MAMMO 19:00
PROVIDERS: ATTEND Family Medicine
DX: Z12.31 Encounter for screening mammogram for malignant neoplasm of breast (principal)

== ENCOUNTER → 2019-04-09 07:37 | Outpatient (CLI) | payer MEDICARE, OTHER ==
[2018-03-23 12:25] VITALS: BMI 19.2
== END | disposition home or self-care (01) ==
LOC: D.RAD 07:37
PROVIDERS: ATTEND Internal Medicine Gastroenterology
DX: Z86.010 Personal history of colon polyps (principal); R63.4 Abnormal weight loss; K31.7 Polyp of stomach and duodenum

== ENCOUNTER → 2019-12-31 13:40 | Outpatient (CLI) | payer MEDICARE, OTHER ==
[2018-03-23 12:25] VITALS: BMI 19.2
== END | disposition home or self-care (01) ==
LOC: D.CT 09-17 13:30 → D.RT 13:40
PROVIDERS: ATTEND Internal Medicine Pulmonary Disease
DX: J44.9 Chronic obstructive pulmonary disease, unspecified (principal); A31.0 Pulmonary mycobacterial infection; Z11.59 Encounter for screening for other viral diseases

== ENCOUNTER → 2020-09-08 09:10 | Outpatient (CLI) | payer MEDICARE, OTHER ==
[2018-03-23 12:25] VITALS: BMI 19.2
== END | disposition home or self-care (01) ==
LOC: D.CT 09:10
PROVIDERS: ATTEND Internal Medicine Pulmonary Disease
DX: J44.9 Chronic obstructive pulmonary disease, unspecified (principal)

== ENCOUNTER → 2020-09-26 16:08 | Outpatient (CLI) | payer MEDICARE, OTHER ==
[2018-03-23 12:25] VITALS: BMI 19.2
[2020-09-27 13:09] LABS: ACID FAST SMEAR Negative (()); AFB SPECIMEN PROCESSING Concentration (())
== END | disposition home or self-care (01) ==
LOC: D.LABREF 16:08
PROVIDERS: ATTEND Internal Medicine Pulmonary Disease
DX: J20.9 Acute bronchitis, unspecified (principal)